=== PATIENT | female | born 1940 | race Caucasian/White ===

== ENCOUNTER → 2019-03-24 15:07 | Outpatient (BNVA) | payer MEDICARE, MEDICAID, SELFPAY | PROVIDERS: Family Provider Family Medicine; PCP Family Medicine; Visit Provider Specialist | DX: G31.83 Neurocognitive disorder with Lewy bodies (principal); F02.80 Dementia in other diseases classified elsewhere, unspecified severity, without behavioral disturbance, psychotic disturbance, mood disturbance, and anxiety; F03.90 Unspecified dementia, unspecified severity, without behavioral disturbance, psychotic disturbance, mood disturbance, and anxiety | CPT/HCPCS: 99214 ==

== ENCOUNTER → 2019-09-29 11:14 | Outpatient (BNVA) | payer MEDICARE, MEDICAID, SELFPAY | PROVIDERS: Family Provider Family Medicine; PCP Family Medicine; Visit Provider Specialist | DX: G20 Parkinson's disease (principal) | CPT/HCPCS: 99213 ==

== ENCOUNTER → 2020-10-05 14:36 | Outpatient (BNVA) | payer MEDICARE, MEDICAID, SELFPAY | PROVIDERS: Family Provider Family Medicine; PCP Family Medicine; Visit Provider Specialist | DX: G20 Parkinson's disease (principal); F02.80 Dementia in other diseases classified elsewhere, unspecified severity, without behavioral disturbance, psychotic disturbance, mood disturbance, and anxiety | CPT/HCPCS: 99214 ==

== ENCOUNTER → 2021-07-05 13:39 | Outpatient (BNVA) | payer MEDICARE, MEDICAID, SELFPAY | PROVIDERS: Family Provider Family Medicine; PCP Family Medicine; Visit Provider Specialist | DX: G31.83 Neurocognitive disorder with Lewy bodies (principal); F02.80 Dementia in other diseases classified elsewhere, unspecified severity, without behavioral disturbance, psychotic disturbance, mood disturbance, and anxiety; R25.1 Tremor, unspecified | CPT/HCPCS: 99213; 99214 ==

== ENCOUNTER → 2023-07-31 14:16 | Outpatient (BNVA) | payer MEDICARE, MEDICAID, SELFPAY | PROVIDERS: Family Provider Family Medicine; PCP Family Medicine; Visit Provider Specialist | DX: G31.83 Neurocognitive disorder with Lewy bodies (principal); F02.C0 Dementia in other diseases classified elsewhere, severe, without behavioral disturbance, psychotic disturbance, mood disturbance, and anxiety | CPT/HCPCS: 99213 ==

== ENCOUNTER 2024-03-07 12:44 | Observation (INO) | payer MEDICARE, MEDICAID, SELFPAY ==
[2024-03-07] VITALS (11 sets, daily range): BP systolic 122–222; BP diastolic 64–137; PULSE 64–99; RESP 16–19; TEMP 36.7–36.9; O2SAT 90–95; BMI 37.0
--- NOTE | 2024-03-07 13:30 | PC.PHAR ---
Verified medications with caregiver, who did give her morning medications including her insulin. Caregiver is concerned about her getting her 1pm dose of Carbidopa/Levodopa 25-100.
[2024-03-07 13:32] LABS: Basophils % 0.4 %; Eosinophils # 0.1 10^3/uL (0.0-0.8); Eosinophils % 1.5 %; Hematocrit 37.6 % (36-47); Lymphocytes % 24.1 %; Mean Corpuscular HGB Conc 33.8 g/dL (30-55); Mean Corpuscular Hemoglobin 30.1 pg (27-33); Mean Corpuscular Volume 89.1 fl (85-98); Mean Platelet Volume 10.2 fL (7.4-10.4); Monocytes # 0.7 10^3/uL (0.2-0.9); Monocytes % 8.9 %; Neutrophils # 5.31 10^3/uL (1.8-7.7); Neutrophils % 64.6 %; Nucleated Red Blood Cells % 0 %; Platelet Count 273 10^3/cmm (157-399); Red Blood Count 4.22 10^6/uL (3.85-5.65); Red Cell Distribution Width 12.5 % (12.1-15.1); White Blood Count 8.21 10^3/uL (3.29-11.43)
--- NOTE | 2024-03-07 13:34 | ED_ITS ---
HPI - Altered Mental Status 2 General: Chief Complaint: Altered Mental Status Stated Complaint: ams Time Seen by Provider: 03/07/24 12:48 Source: patient and EMS History of Present Illness: Patient is a nontoxic 83-year-old female with advanced dementia who is brought into the ER by EMS due to concern for safety at home alone. Patient lives with a family member who assist with her care at home however that family members currently hospitalized and EMS was called for welfare check on the patient who appeared confused at home alone. Patient has no acute complaints to me on exam. Related Data Home Medications Medication Instructions Recorded Confirmed acetaminophen 500 mg tablet 500 mg PO Q6H PRN Pain 03/24/19 03/07/24 (Tylenol Extra Strength) albuterol sulfate 90 mcg/actuation 2 puff inhalation Q4H PRN 03/24/19 03/07/24 aerosol inhaler (Ventolin HFA) Shortness Of Breath amlodipine 10 mg tablet 10 mg PO DAILY 03/24/19 03/07/24 chlorthalidone 25 mg tablet 25 mg PO DAILY 03/24/19 03/07/24 citalopram 20 mg tablet 20 mg PO DAILY 03/24/19 03/07/24 clonidine HCl 0.3 mg tablet 0.15 mg PO DAILY 03/24/19 03/07/24 fluticasone furoate 100 1 inh inhalation DAILY 03/24/19 03/07/24 mcg-vilanterol 25 mcg/dose inhalation powder (Breo Ellipta) insulin degludec 200 unit/mL (3 26 unit SUBCUT DAILY 03/24/19 03/07/24 mL) subcutaneous pen (Tresiba FlexTouch U-200 insulin) losartan 50 mg tablet 50 mg PO DAILY 03/24/19 03/07/24 metoprolol succinate 25 mg 12.5 mg PO DAILY 03/24/19 03/07/24 tablet,extended release 24 hr simethicone 125 mg capsule 125 mg PO DAILY PRN Indigestion 03/24/19 03/07/24 furosemide 20 mg tablet 20 mg PO DAILY PRN Edema 03/07/24 03/07/24 insulin aspart 10 unit SUBCUT TID 03/07/24 03/07/24 (niacinamide)(U-100) 100 unit/mL(3 mL) subcutaneous pen (Fiasp FlexTouch U-100 Insulin) ondansetron HCl 4 mg tablet 4 mg PO DAILY PRN Nausea And 03/07/24 03/07/24 Vomiting pantoprazole 40 mg tablet,delayed 40 mg PO DAILY 03/07/24 03/07/24 release potassium chloride 10 mEq 10 meq PO DAILY PRN Edema 03/07/24 03/07/24 tablet,extended release rosuvastatin 5 mg tablet 5 mg PO DAILY 03/07/24 03/07/24 Previous Rx's Medication Instructions Recorded carbidopa 25 mg-levodopa 100 mg See Rx Instructions .Route 07/31/23 tablet .COMPLEX #450 tabs Allergies Allergy/AdvReac Type Severity Reaction Status Date / Time Opioids - Morphine Analogues Allergy nausea/vomi Verified 07/31/23 14:22 ting PFSH ED 2 PFSH: Family History Other Diabetes Hypertension Denies family history of CAD (coronary artery disease) Cancer Stroke Social History Smoking and tobacco/nicotine status: never used tobacco/nicotine Alcohol intake: never Substance/Drug Use: never Physical Exam 2 Const: COMMON NORMALS: no acute distress, average body habitus, alert and well nourished GENERAL APPEARANCE: cooperative ORIENTATION/CONSCIOUSNESS: Yes awake HENMT: COMMON NORMALS: normocephalic and atraumatic HEAD & SCALP: n ormocephalic and atraumatic Eye: COMMON NORMALS: conjunctivae normal CONJUNCTIVA: Yes conjunctivae normal Neck/C-Spine: GENERAL: Yes normal visual inspection Resp: COMMON NORMALS: normal respiratory effort, No retractions and No use of accessory muscles Cardio: COMMON NORMALS: regular rhythm and Peripheral pulses 2+ throughout RHYTHM: regular rhythm PERIPHERAL PULSES: Peripheral pulses 2+ throughout GI: COMMON NORMALS: Soft to palpation and non-tender PALPATION: Yes Soft to palpation Extremity: COMMON NORMALS: full ROM and no pedal edema Neuro: COMMON NORMALS: no focal motor deficits SENSORIUM/ORIENTATION: Yes alert Skin: COMMON NORMALS: no rashes or lesions noted GENERAL SKIN EXAM: no rashes or lesions noted Course 2 Vital Signs: Vital signs: Vital Signs Temperature 98.1 F 03/07/24 12:44 Pulse Rate 99 03/07/24 12:44 Respiratory Rate 16 03/07/24 12:44 Blood Pressure 198/111 03/07/24 14:04 Pulse Oximetry 91 03/07/24 12:44 Oxygen Delivery Me thod Room Air 03/07/24 12:44 MDM - Altered Mental Status Medical Decision Making Patient is a 83-year-old female with advanced dementia who presents to the ER with significant hypertension and inability to care for self independently at home. Her son who is her primary creel selector is currently being admitted for DKA. Patient has not taken any of her medications today. She was given multiple doses of labetalol as well as clonidine and restarted on her amlodipine and continues to have blood pressure of 190s over 130s. I spoke with Dr. Ghosh with the hospitalist service who will admit for accelerated hypertension and further observation. Lab Data I reviewed the patient's lab results. 03/07/24 13:19 03/07/24 13:19 Laboratory Results WBC 8.21 10^3/uL (3.29-11.43) 03/07/24 13:19 RBC 4.22 10^6/uL (3.85-5.65) 03/07/24 13:19 Hgb 12.70 g/dL (11.27-16.99) 03/07/24 13:19 Hct 37.6 % (36-47) 03/07/24 13:19 MCV 89.1 fl (85-98) 03/07/24 13:19 MCH 30.1 pg (27-33) 03/07/24 13:19 MCHC 33.8 g/dL (30-55) 03/07/24 13:19 RDW 12.5 % (12.1-15.1) 03/07/24 13:19 Plt Count 273 10^3/cmm (157-399) 03/07/24 13:19 MPV 10.2 fL (7.4-10.4) 03/07/24 13:19 Neut % (Auto) 64.6 % 03/07/24 13:19 Lymph % (Auto) 24.1 % 03/07/24 13:19 [place] % (Auto) 8.9 % 03/07/24 13:19 Eos % (Auto) 1.5 % 03/07/24 13:19 Baso % (Auto) 0.4 % 03/07/24 13:19 Neut # (Auto) 5.31 10^3/uL (1.8-7.7) 03/07/24 13:19 Lymph # (Auto) 2.0 10^3/uL (0.8-4.8) 03/07/24 13:19 [place] # (Auto) 0.7 10^3/uL (0.2-0.9) 03/07/24 13:19 Eos # (Auto) 0.1 10^3/uL (0.0-0.8) 03/07/24 13:19 Baso # (Auto) 0.0 10^3/uL (0.0-0.1) 03/07/24 13:19 Nucleated RBC % (auto) 0 % 03/07/24 13:19 Nucleated RBCs # 0.0 /100WBC 03/07/24 13:19 Sodium 138 mmol/L (136-145) 03/07/24 13:19 Potassium 3.5 mmol/L (3.5-5.1) 03/07/24 13:19 Chloride 98 mmol/L (98-107) 03/07/24 13:19 Carbon Dioxide 28 mmol/L (22-29) 03/07/24 13:19 Anion Gap 15.5 (5-19) 03/07/24 13:19 BUN 11 mg/dL (8-23) 03/07/24 13:19 Creatinine 0.6 mg/dL (0.5-0.9) 03/07/24 13:19 GFR Calculation Not Reportable 03/07/24 13:19 Glucose 232 mg/dL (65-115) H 03/07/24 13:19 Calculated Osmolality 293 mOsm/kg (285-295) 03/07/24 13:19 Calcium 9.0 mg/dL (8.5-10.5) 03/07/24 13:19 Total Bilirubin 0.3 mg/dL (0.15-1.2) 03/07/24 13:19 AST 26 U/L (0-32) 03/07/24 13:19 ALT 15 U/L (0-33) 03/07/24 13:19 Alkaline Phosphatase 73 U/L (35-105) 03/07/24 13:19 Total Protein 6.7 g/dL (6.6-8.7) 03/07/24 13:19 Albumin 4.1 g/dL (3.5-5.2) 03/07/24 13:19 Globulin 2.6 g/dL (1.3-4.6) 03/07/24 13:19 No radiology studies performed this visit Discharge Plan Discharge Patient Disposition: Placed in Observation Clinical Impression: Accelerated hypertension, Dementia, Acute hyperglycemia Condition: Stable Prescriptions: No Action clonidine HCl 0.3 mg tablet 0.15 mg PO DAILY metoprolol succinate 25 mg tablet extended release 24 hr 12.5 mg PO DAILY chlorthalidone 25 mg tablet 25 mg PO DAILY losartan 50 mg tablet 50 mg PO DAILY citalopram 20 mg tablet 20 mg PO DAILY albuterol sulfate [Ventolin HFA] 90 mcg/actuation HFA aerosol inhaler 2 puff INHALATION Q4H PRN (Reason: Shortness Of Breath) amlodipine 10 mg tablet 10 mg PO DAILY simethicone 125 mg capsule 125 mg PO DAILY PRN (Reason: Indigestion) acetaminophen [Tylenol Extra Strength] 500 mg tablet 500 mg PO Q6H PRN (Reason: Pain) Tresiba FlexTouch U-200 200 unit/mL (3 mL) insulin pen 26 unit SUBCUT DAILY Breo Ellipta 100-25 mcg/dose blister with device 1 inh INHALATION DAILY carbidopa-levodopa 25-100 mg tablet See Rx Instructions .ROUTE .COMPLEX Qty: 450 3RF Dose Instruction: TAKE 1 TABLET BY MOUTH AT 10 AM, 1 PM, 4 PM, 7 PM, AND 10 PM. Rx Instructions: TAKE 1 TABLET BY MOUTH AT 10 AM, 1 PM, 4 PM, 7 PM, AND 10 PM. ondansetron HCl 4 mg tablet 4 mg PO DAILY PRN (Reason: Nausea And Vomiting) potassium chloride 10 mEq tablet extended release 10 meq PO DAILY PRN (Reason: Edema) pantoprazole 40 mg tablet,delayed release (DR/EC) 40 mg PO DAILY furosemide 20 mg tablet 20 mg PO DAILY PRN (Reason: Edema) rosuvastatin 5 mg tablet 5 mg PO DAILY Fiasp FlexTouch U-100 Insulin 100 unit/mL (3 mL) insulin pen 10 unit SUBCUT TID Referrals: Anamika Ramirez MD [Primary Care Provider] - Patient Instructions: Altered Mental Status (ED) Coding Level of Care Code ED Jewel Sawyer for Benjamin Wallace
[2024-03-07 13:51] LABS: Alanine Aminotransferase 15 U/L (0-33); Albumin Level 4.1 g/dL (3.5-5.2); Alkaline Phosphatase 73 U/L (35-105); Anion Gap 15.5 (5-19); Aspartate Amino Transferase 26 U/L (0-32); Blood Urea Nitrogen 11 mg/dL (8-23); Carbon Dioxide 28 mmol/L (22-29); Chloride 98 mmol/L (98-107); Creatinine Clr Calc Pharmacy 51.1972; Globulin 2.6 g/dL (1.3-4.6); Glucose 232 mg/dL (65-115); Osmolality Calculated 293 mOsm/kg (285-295); Potassium 3.5 mmol/L (3.5-5.1); Sodium 138 mmol/L (136-145); Total Bilirubin 0.3 mg/dL (0.15-1.2); Total Protein 6.7 g/dL (6.6-8.7)
[2024-03-07] MEDS: cloNIDine 0.1 mg Tablet PO (14:04)
[2024-03-07] MEDS: labetalol 5 mg/mL SDV 20mL 10 MG IVP ×2 (15:22→15:36)
[2024-03-07] MEDS: amlodipine 10 mg Tablet PO (15:36)
[2024-03-07 16:18] LABS: Influenza A NEGATIVE (Negative); Influenza B NEGATIVE (Negative); Respiratory Syncytial Virus Ce NEGATIVE (Negative); SARS-CoV-2 PCR NEGATIVE (Negative)
--- NOTE | 2024-03-07 16:25 | XRR_ITS ---
PROCEDURE INFORMATION: Exam: XR Left Ankle Exam date and time: 03/07/2024 4:53 PM Age: 83 years old Clinical indication: Left; Patient HX: Bilateral ankle/foot pain/swelling after fall x 1 week ago TECHNIQUE: Imaging protocol: Radiologic exam of the left ankle. Views: 3 or more views. COMPARISON: CR XR foot LT min 3V* [id number] 03/07/2024 4:53 PM FINDINGS: Bones/joints: Plantar calcaneal spurring. No acute displaced fractures. No ankle joint effusion. Soft tissues: Soft tissue swelling about the ankle joint. XR/XR ankle LT min 3V* [id number] IMPRESSION: As above.
--- NOTE | 2024-03-07 16:25 | XRR_ITS ---
PROCEDURE INFORMATION: Exam: XR Left Foot Exam date and time: 03/07/2024 4:53 PM Age: 83 years old Clinical indication: Left; Patient HX: Bilateral ankle/foot pain/swelling after fall x 1 week ago TECHNIQUE: Imaging protocol: Radiologic exam of the left foot. Views: 3 or more views. COMPARISON: CR (LOW EXM, ) 03/07/2024 4:53 PM FINDINGS: Bones/joints: Plantar calcaneal spurring. No acute displaced fractures. Soft tissues: Mild soft tissue swelling about the dorsum of the foot. XR/XR foot LT min 3V* [id number] IMPRESSION: As above.
--- NOTE | 2024-03-07 16:29 | XRR_ITS ---
PROCEDURE INFORMATION: Exam: XR Right Ankle Exam date and time: 03/07/2024 4:46 PM Age: 83 years old Clinical indication: Ankle and foot; Right; Patient HX: Bilateral ankle/foot pain/swelling after fall x 1 week ago TECHNIQUE: Imaging protocol: Radiologic exam of the right ankle. Views: 3 or more views. COMPARISON: CR XR foot RT min 3V* [id number] 03/07/2024 4:46 PM FINDINGS: Bones/joints: No obvious acute osseous abnormality. Plantar calcaneal spurring. No ankle joint effusion. Soft tissues: Soft tissue swelling about the ankle joint. XR/XR ankle RT min 3V* [id number] IMPRESSION: As above.
--- NOTE | 2024-03-07 16:30 | XRR_ITS ---
PROCEDURE INFORMATION: Exam: XR Right Foot Exam date and time: 03/07/2024 4:46 PM Age: 83 years old Clinical indication: Right; Patient HX: Bilateral ankle/foot pain/swelling after fall x 1 week ago TECHNIQUE: Imaging protocol: Radiologic exam of the right foot. Views: 3 or more views. COMPARISON: CR (LOW EXM, ) 03/07/2024 4:46 PM FINDINGS: Bones/joints: Diffusely decreased bone mineralization. No obvious acute displaced fracture. The joint spaces are maintained. Soft tissues: Soft tissue swelling about the dorsum of the foot. XR/XR foot RT min 3V* [id number] IMPRESSION: As above
--- NOTE | 2024-03-07 16:30 | P.HP_ITS ---
Providers/Chief Complaint 2 Primary Care Provider: Anamika Ramirez MD Chief Complaint: ams History of Present Illness Yudy Coates is a 83 year old female who was brought to the emergency room today after a welfare check as her son had to be brought to the hospital for an acute illness. She has severe Lewy body dementia, gets confused easily, she was found to have elevated blood pressures and brought to the ER. Here her blood pressure was over 200 systolic. She does not appear to have had her meds today. She denies any specific complaints. She is able to tell me her name but not much else. Denies having any pain. States she would like to go home. Review of Systems 2 General: Reports: ROS unobtainable due to medical condition Medications/Allergies Home Medications Medication Instructions Recorded Confirmed Last Taken Type acetaminophen 500 mg tablet 500 mg PO Q6H PRN Pain 03/24/19 03/07/24 Unknown History (Tylenol Extra Strength) albuterol sulfate 90 mcg/actuation 2 puff inhalation Q4H PRN 03/24/19 03/07/24 Unknown History aerosol inhaler (Ventolin HFA) Shortness Of Breath amlodipine 10 mg tablet 10 mg PO DAILY 03/24/19 03/07/24 03/07/24 History chlorthalidone 25 mg tablet 25 mg PO DAILY 03/24/19 03/07/24 03/07/24 History citalopram 20 mg tablet 20 mg PO DAILY 03/24/19 03/07/24 03/07/24 History clonidine HCl 0.3 mg tablet 0.15 mg PO DAILY 03/24/19 03/07/24 03/07/24 History fluticasone furoate 100 1 inh inhalation DAILY 03/24/19 03/07/24 03/07/24 History mcg-vilanterol 25 mcg/dose inhalation powder (Breo Ellipta) insulin degludec 200 unit/mL (3 26 unit SUBCUT DAILY 03/24/19 03/07/24 03/07/24 History mL) subcutaneous pen (Tresiba FlexTouch U-200 insulin) losartan 50 mg tablet 50 mg PO DAILY 03/24/19 03/07/24 03/07/24 History metoprolol succinate 25 mg 12.5 mg PO DAILY 03/24/19 03/07/24 03/07/24 History tablet,extended release 24 hr simethicone 125 mg capsule 125 mg PO DAILY PRN Indigestion 03/24/19 03/07/24 Unknown History carbidopa 25 mg-levodopa 100 mg See Rx Instructions .Route 07/31/23 03/07/24 03/07/24 Rx tablet .COMPLEX #450 tabs furosemide 20 mg tablet 20 mg PO DAILY PRN Edema 03/07/24 03/07/24 Unknown History insulin aspart 10 unit SUBCUT TID 03/07/24 03/07/24 03/07/24 History (niacinamide)(U-100) 100 unit/mL(3 mL) subcutaneous pen (Fiasp FlexTouch U-100 Insulin) ondansetron HCl 4 mg tablet 4 mg PO DAILY PRN Nausea And 03/07/24 03/07/24 Unknown History Vomiting pantoprazole 40 mg tablet,delayed 40 mg PO DAILY 03/07/24 03/07/24 03/07/24 History release potassium chloride 10 mEq 10 meq PO DAILY PRN Edema 03/07/24 03/07/24 Unknown History tablet,extended release rosuvastatin 5 mg tablet 5 mg PO DAILY 03/07/24 03/07/24 03/06/24 History Allergies Allergy/AdvReac Type Severity Reaction Status Date / Time Opioids - Morphine Analogues Allergy nausea/vomi Verified 07/31/23 14:22 ting PFSH Acute 2 PFSH: Family History Other Diabetes Hypertension Denies family history of CAD (coronary artery disease) Cancer Stroke Social History Smoking and tobacco/nicotine status: never used tobacco/nicotine Alcohol intake: never Substance/Drug Use: never Vitals/I&O/Wt Last Vital Signs Temp 98.1 F 03/07/24 12:44 Pulse 77 03/07/24 15:30 Resp 16 03/07/24 12:44 BP 198/137 03/07/24 15:30 Pulse Ox 90 03/07/24 15:30 O2 Del Method Room Air 03/07/24 12:44 Weight last 48 hrs Weight 83.915 kg Physical Exam 2 Narrative: General: No acute distress, AO x1 HEENT: PERRLA, pupils bilaterally equal and reactive, pallors not present Chest: Normal vesicular breath sounds, no added sounds, equal good air entry bilaterally CVS: S1-S2 regular, no murmurs, no tachycardia, no gallops, no rubs Abdomen: Soft, nontender, no organomegaly, bowel sounds present Neuro: No focal deficits, no facial deformity, AO x1, power 5/5 in all limbs Data 03/07/24 13:19 03/07/24 13:19 A&P Assessment and plan (1) Uncontrolled hypertension: (2) Parkinson disease: (3) Lewy body dementia: Qualifiers: Dementia severity: severe Dementia behavioral or psychological symptom: without behavioral, psychotic, or mood disturbance or anxiety Qualified Code(s): G31.83 - Neurocognitive disorder with Lewy bodies; F02.C0 - Dementia in other diseases classified elsewhere, severe, without behavioral disturbance, psychotic disturbance, mood disturbance, and anxiety Plan 83-year-old lady brought to the ER today after a welfare check. Here she is found to have elevated blood pressures in excess of 200/108 systolic. Patient is asymptomatic denies any chest pain or headache. She has severe low body dementia. No focal deficits on exam. Moving all extremities. Able to have a conversation though obviously content is forgetful. Her care was discussed with her son who agrees for her to be admitted to the hospital in observation for blood pressure control. She has thus far received labetalol 10 mg IV push x 2. Amlodipine 10 mg p.o. x 1. Add hydralazine 10 mg IV every 4 hours as needed Resume patient's usual home medications including amlodipine, losartan, metoprolol, clonidine. Most likely blood pressure is elevated today as she has not had any of her regular medications. Monitor on [email or web address]. Attestations 2 Medical Necessity Statement*: Less than 2 midnight stay is anticipated Coding Level of Care Code Acute Code for Chg Fwd Diagnoses Uncontrolled hypertension I10 Parkinson disease G20 Severe Lewy body dementia without behavioral disturbance, psychotic disturbance, mood disturbance, or anxiety G31.83; F02.C0 Dementia severity: severe Dementia behavioral or psychological symptom: without behavioral, psychotic, or mood disturbance or anxiety
--- NOTE | 2024-03-07 18:40 | PC.NURSE ---
Patient is valeri alert to self and date of . Patient denies any pain.
--- NOTE | 2024-03-07 18:40 | PC.NURSE ---
Patient is alert to self and date of only unable to answer medical questions
--- NOTE | 2024-03-07 18:40 | PC.NURSE ---
Patient is only alert to self and date of she is unable to answer any of the medical questions.
[2024-03-07] MEDS: carbidopa-levodopa 25-100mg Tablet 1 EACH PO ×2 (19:13→21:55)
[2024-03-07 20:49] LABS: Glucose Point of Care 163 mg/dL (70-110)
[2024-03-08] VITALS (7 sets, daily range): BP systolic 112–185; BP diastolic 61–76; PULSE 66–97; RESP 17–18; TEMP 36.6–36.8; O2SAT 91–95
[2024-03-08 06:37] LABS: Glucose Point of Care 137 mg/dL (70-110)
[2024-03-08] MEDS: pantoprazole DR 40 mg Tablet PO (10:46)
[2024-03-08] MEDS: atorvastatin 40 mg Tablet 20 MG PO (10:46)
[2024-03-08] MEDS: losartan 50 mg Tablet PO (10:46)
[2024-03-08] MEDS: cloNIDine 0.1 mg Tablet 0.15 MG PO (10:46)
[2024-03-08] MEDS: metoprolol succinate ER (24 HR) 25 mg Tablet 12.5 MG PO (10:47)
[2024-03-08] MEDS: carbidopa-levodopa 25-100mg Tablet 1 EACH PO ×4 (10:47→21:13)
[2024-03-08] MEDS: citalopram 20 mg Tablet PO (10:47)
[2024-03-08] MEDS: acetaminophen 325 mg Tablet 650 MG PO (10:47)
[2024-03-08] MEDS: amlodipine 10 mg Tablet PO (10:47)
[2024-03-08] MEDS: chlorthalidone 25 mg Tablet PO (10:47)
[2024-03-08] MEDS: insulin lispro 100 unit/1 mL 10 UNIT SUBCUT (10:52)
[2024-03-08 10:58] LABS: Glucose Point of Care 223 mg/dL (70-110)
[2024-03-08] MEDS: insulin glargine 100 units/1 mL 26 UNIT SUBCUT (11:02)
[2024-03-08 14:23] LABS: Glucose Point of Care 68 mg/dL (70-110)
--- NOTE | 2024-03-08 15:08 | P.PN_ITS ---
Subjective 2 Subjective: blood pressure 180s today, hypoglycemic this afternoon, missed lunch Medications: Reviewed: Yes Vitals/I&O/Wt Last Vital Signs Temp 98.3 F 03/08/24 11:03 Pulse 97 03/08/24 11:03 Resp 17 03/08/24 11:03 BP 185/70 03/08/24 11:03 Pulse Ox 94 03/08/24 11:03 O2 Del Method Room Air 03/08/24 11:03 03/08/24 03/08/24 03/08/24 06:59 14:59 22:59 Intake Total 356 / 356 Balance 356 / 356 Weight last 48 hrs Weight 72.711 kg Weight 86.183 kg Weight 83.915 kg Physical Exam 2 Narrative: General: No acute distress, AO x1 HEENT: PERRLA, pupils bilaterally equal and reactive, pallors not present Chest: Normal vesicular breath sounds, no added sounds, equal good air entry bilaterally CVS: S1-S2 regular, no murmurs, no tachycardia, no gallops, no rubs Abdomen: Soft, nontender, no organomegaly, bowel sounds present Neuro: No focal deficits, no facial deformity, AO x1, power 5/5 in all limbs Data 03/07/24 13:19 03/07/24 13:19 A&P Assessment and plan (1) Uncontrolled hypertension: (2) Parkinson disease: (3) Lewy body dementia: Qualifiers: Dementia severity: severe Dementia behavioral or psychological symptom: without behavioral, psychotic, or mood disturbance or anxiety Qualified Code(s): G31.83 - Neurocognitive disorder with Lewy bodies; F02.C0 - Dementia in other diseases classified elsewhere, severe, without behavioral disturbance, psychotic disturbance, mood disturbance, and anxiety Plan 83-year-old lady brought to the ER today after a welfare check. Here she is found to have elevated blood pressures in excess of 200/108 systolic. Patient is asymptomatic denies any chest pain or headache. She has severe low body dementia. No focal deficits on exam. Moving all extremities. Able to have a conversation though obviously content is forgetful. Her care was discussed with her son who agrees for her to be admitted to the hospital in observation for blood pressure control. She has thus far received labetalol 10 mg IV push x 2. Amlodipine 10 mg p.o. x 1. Add hydralazine 10 mg IV every 4 hours as needed Resume patient's usual home medications including amlodipine, losartan, metoprolol, clonidine. Most likely blood pressure is elevated today as she has not had any of her regular medications. Monitor on [facility]. 03/08/24: hypoglycemic today, given juice and meal, missed lunch as she was asleep,holding insulin, will resume low dose sliding scale when able. Bp still systolic 180s . Increase losartan to 75mg po daily and monitor BP. Ongoing disposition planning Attestations 2 Medical Necessity Statement*: ongoing disposition planning Coding Level of Care Code Acute Code for Chg Fwd Diagnoses Uncontrolled hypertension I10 Parkinson disease G20 Severe Lewy body dementia without behavioral disturbance, psychotic disturbance, mood disturbance, or anxiety G31.83; F02.C0 Dementia severity: severe Dementia behavioral or psychological symptom: without behavioral, psychotic, or mood disturbance or anxiety
[2024-03-08 15:33] LABS: Glucose Point of Care 134 mg/dL (70-110)
[2024-03-08 16:47] LABS: Glucose Point of Care 149 mg/dL (70-110)
[2024-03-08 20:25] LABS: Glucose Point of Care 119 mg/dL (70-110)
[2024-03-09] VITALS (10 sets, daily range): BP systolic 119–179; BP diastolic 56–79; PULSE 69–94; RESP 16–19; TEMP 36.5–36.9; O2SAT 93–96
[2024-03-09 03:25] LABS: Glucose Point of Care 76 mg/dL (70-110)
[2024-03-09 06:48] LABS: Glucose Point of Care 120 mg/dL (70-110)
[2024-03-09 10:48] LABS: Glucose Point of Care 254 mg/dL (70-110)
[2024-03-09] MEDS: citalopram 20 mg Tablet PO (10:49)
[2024-03-09] MEDS: chlorthalidone 25 mg Tablet PO (10:49)
[2024-03-09] MEDS: carbidopa-levodopa 25-100mg Tablet 1 EACH PO ×5 (10:49→22:21)
[2024-03-09] MEDS: pantoprazole DR 40 mg Tablet PO (10:49)
[2024-03-09] MEDS: metoprolol succinate ER (24 HR) 25 mg Tablet 12.5 MG PO (10:50)
[2024-03-09] MEDS: amlodipine 10 mg Tablet PO (10:50)
[2024-03-09] MEDS: losartan 50 mg Tablet 75 MG PO (10:51)
[2024-03-09] MEDS: cloNIDine 0.1 mg Tablet 0.15 MG PO (10:52)
[2024-03-09] MEDS: atorvastatin 40 mg Tablet 20 MG PO (10:54)
--- NOTE | 2024-03-09 14:06 | P.PN_ITS ---
Subjective 2 Subjective: Seen this morning. No acute events overnight. Resting comfortably in recliner. Pleasantly confused. Vitals/I&O/Wt Last Vital Signs Temp 98.2 F 03/09/24 11:10 Pulse 90 03/09/24 11:10 Resp 16 03/09/24 11:10 BP 155/79 03/09/24 11:10 Pulse Ox 96 03/09/24 11:10 O2 Del Method Room Air 03/09/24 11:10 03/08/24 03/09/24 03/09/24 22:59 06:59 14:59 Intake Total 420 / 776 360 / 360 Balance 420 / 776 360 / 360 Weight last 48 hrs Weight 72.711 kg Weight 72.711 kg Weight 86.183 kg Physical Exam 2 Narrative: General: No acute distress, AO x1 HEENT: PERRLA, pupils bilaterally equal and reactive, pallors not present Chest: Normal vesicular breath sounds, no added sounds, equal good air entry bilaterally CVS: S1-S2 regular, no murmurs, no tachycardia, no gallops, no rubs Abdomen: Soft, nontender, no organomegaly, bowel sounds present Neuro: No focal deficits, no facial deformity, AO x1, Data 03/07/24 13:19 03/07/24 13:19 A&P Assessment and plan (1) Uncontrolled hypertension: (2) Parkinson disease: (3) Lewy body dementia: Qualifiers: Dementia severity: severe Dementia behavioral or psychological symptom: without behavioral, psychotic, or mood disturbance or anxiety Qualified Code(s): G31.83 - Neurocognitive disorder with Lewy bodies; F02.C0 - Dementia in other diseases classified elsewhere, severe, without behavioral disturbance, psychotic disturbance, mood disturbance, and anxiety Plan 83-year-old lady brought to the ER today after a welfare check. Here she is found to have elevated blood pressures in excess of 200/108 systolic. Patient is asymptomatic denies any chest pain or headache. She has severe low body dementia. No focal deficits on exam. Moving all extremities. Able to have a conversation though obviously content is forgetful. Her care was discussed with her son who agrees for her to be admitted to the hospital in observation for blood pressure control. She has thus far received labetalol 10 mg IV push x 2. Amlodipine 10 mg p.o. x 1. Add hydralazine 10 mg IV every 4 hours as needed Resume patient's usual home medications including amlodipine, losartan, metoprolol, clonidine. Most likely blood pressure is elevated today as she has not had any of her regular medications. Monitor on [facility]. 03/08/24: hypoglycemic today, given juice and meal, missed lunch as she was asleep,holding insulin, will resume low dose sliding scale when able. Bp still systolic 180s . Increase losartan to 75mg po daily and monitor BP. Ongoing disposition planning 03/09/2024 Seen today. Blood pressure improved. ? Continue ongoing disposition planning. Attestations 2 Medical Necessity Statement*: ongoing disposition planning Coding Level of Care Code Acute Code for Chg Fwd Diagnoses Uncontrolled hypertension I10 Parkinson disease G20 Severe Lewy body dementia without behavioral disturbance, psychotic disturbance, mood disturbance, or anxiety G31.83; F02.C0 Dementia severity: severe Dementia behavioral or psychological symptom: without behavioral, psychotic, or mood disturbance or anxiety
[2024-03-09 16:50] LABS: Glucose Point of Care 286 mg/dL (70-110)
[2024-03-09 20:13] LABS: Glucose Point of Care 366 mg/dL (70-110)
[2024-03-10 04:00] VITALS: BP 132/56; PULSE 68; RESP 17; TEMP 36.9; O2SAT 94
[2024-03-10 04:29] LABS: Glucose Point of Care 257 mg/dL (70-110)
[2024-03-10 06:26] LABS: Glucose Point of Care 238 mg/dL (70-110)
[2024-03-10 07:24] VITALS: BP 163/84; PULSE 82; RESP 17; TEMP 36.7; O2SAT 95
[2024-03-10] MEDS: amlodipine 10 mg Tablet PO (09:13)
[2024-03-10] MEDS: atorvastatin 40 mg Tablet 20 MG PO (09:13)
[2024-03-10] MEDS: carbidopa-levodopa 25-100mg Tablet 1 EACH PO ×4 (09:13→21:33)
[2024-03-10] MEDS: metoprolol succinate ER (24 HR) 25 mg Tablet 12.5 MG PO (09:13)
[2024-03-10] MEDS: citalopram 20 mg Tablet PO (09:13)
[2024-03-10] MEDS: cloNIDine 0.1 mg Tablet 0.15 MG PO (09:13)
[2024-03-10] MEDS: chlorthalidone 25 mg Tablet PO (09:13)
[2024-03-10] MEDS: pantoprazole DR 40 mg Tablet PO (09:13)
[2024-03-10] MEDS: losartan 50 mg Tablet 75 MG PO (09:14)
[2024-03-10 10:00] VITALS: PULSE 92; RESP 18; O2SAT 95
[2024-03-10 11:40] LABS: Glucose Point of Care 365 mg/dL (70-110)
[2024-03-10 11:45] VITALS: BP 124/80; PULSE 72; RESP 18; TEMP 36.6; O2SAT 94
--- NOTE | 2024-03-10 13:06 | P.PN_ITS ---
Subjective 2 Subjective: seen today no acute events overnight Vitals/I&O/Wt Last Vital Signs Temp 97.9 F 03/10/24 11:45 Pulse 72 03/10/24 11:45 Resp 18 03/10/24 11:45 BP 124/80 03/10/24 11:45 Pulse Ox 94 03/10/24 11:45 O2 Del Method Room Air 03/10/24 11:45 03/09/24 03/10/24 03/10/24 22:59 06:59 14:59 Intake Total 360 / 720 120 / 840 480 / 480 Output Total 200 / 200 Balance 360 / 720 -80 / 640 480 / 480 Weight last 48 hrs Weight 72.756 kg Weight 72.711 kg Physical Exam 2 Narrative: General: No acute distress, AO x1 HEENT: PERRLA, pupils bilaterally equal and reactive, pallors not present Chest: Normal vesicular breath sounds, no added sounds, equal good air entry bilaterally CVS: S1-S2 regular, no murmurs, no tachycardia, no gallops, no rubs Abdomen: Soft, nontender, no organomegaly, bowel sounds present Neuro: No focal deficits, no facial deformity, AO x1, Data 03/07/24 13:19 03/07/24 13:19 A&P Assessment and plan (1) Uncontrolled hypertension: (2) Parkinson disease: (3) Lewy body dementia: Qualifiers: Dementia severity: severe Dementia behavioral or psychological symptom: without behavioral, psychotic, or mood disturbance or anxiety Qualified Code(s): G31.83 - Neurocognitive disorder with Lewy bodies; F02.C0 - Dementia in other diseases classified elsewhere, severe, without behavioral disturbance, psychotic disturbance, mood disturbance, and anxiety Plan 83-year-old lady brought to the ER today after a welfare check. Here she is found to have elevated blood pressures in excess of 200/108 systolic. Patient is asymptomatic denies any chest pain or headache. She has severe low body dementia. No focal deficits on exam. Moving all extremities. Able to have a conversation though obviously content is forgetful. Her care was discussed with her son who agrees for her to be admitted to the hospital in observation for blood pressure control. She has thus far received labetalol 10 mg IV push x 2. Amlodipine 10 mg p.o. x 1. Add hydralazine 10 mg IV every 4 hours as needed Resume patient's usual home medications including amlodipine, losartan, metoprolol, clonidine. Most likely blood pressure is elevated today as she has not had any of her regular medications. Monitor on MedSurg. 03/08/24: hypoglycemic today, given juice and meal, missed lunch as she was asleep,holding insulin, will resume low dose sliding scale when able. Bp still systolic 180s . Increase losartan to 75mg po daily and monitor BP. Ongoing disposition planning 03/09/2024 Seen today. Blood pressure improved. ? Continue ongoing disposition planning. 03/10/2024 Seen today. Blood pressure improved. ? Continue ongoing disposition planning. Attestations 2 Medical Necessity Statement*: ongoing disposition planning Diagnoses Uncontrolled hypertension I10 Parkinson disease G20 Severe Lewy body dementia without behavioral disturbance, psychotic disturbance, mood disturbance, or anxiety G31.83; F02.C0 Dementia severity: severe Dementia behavioral or psychological symptom: without behavioral, psychotic, or mood disturbance or anxiety
[2024-03-10 15:30] VITALS: BP 153/66; PULSE 67; RESP 14; TEMP 36.8; O2SAT 93
[2024-03-10 16:31] LABS: Glucose Point of Care 360 mg/dL (70-110)
[2024-03-10 19:48] VITALS: BP 141/74; PULSE 73; RESP 17; TEMP 36.9; O2SAT 95
[2024-03-11] VITALS (9 sets, daily range): BP systolic 115–168; BP diastolic 51–83; PULSE 64–100; RESP 15–17; TEMP 36.4–37.1; O2SAT 92–96
[2024-03-11] MEDS: carbidopa-levodopa 25-100mg Tablet 1 EACH PO ×6 (00:12→22:39)
[2024-03-11] MEDS: insulin lispro 100 unit/1 mL SUBCUT ×3 (07:48→22:39)
[2024-03-11] MEDS: cloNIDine 0.1 mg Tablet 0.15 MG PO (08:58)
[2024-03-11] MEDS: citalopram 20 mg Tablet PO (08:58)
[2024-03-11] MEDS: chlorthalidone 25 mg Tablet PO (08:59)
[2024-03-11] MEDS: losartan 50 mg Tablet 75 MG PO (08:59)
[2024-03-11] MEDS: amlodipine 10 mg Tablet PO (08:59)
[2024-03-11] MEDS: atorvastatin 40 mg Tablet 20 MG PO (08:59)
[2024-03-11] MEDS: pantoprazole DR 40 mg Tablet PO (08:59)
[2024-03-11] MEDS: metoprolol succinate ER (24 HR) 25 mg Tablet 12.5 MG PO (08:59)
[2024-03-11 11:43] LABS: Glucose Point of Care 120 mg/dL (70-110)
--- NOTE | 2024-03-11 13:28 | P.PN_ITS ---
Subjective 2 Subjective: Patient states she would like to go home with Paulo. No acute events overnight. Vitals/I&O/Wt Last Vital Signs Temp 97.6 F 03/11/24 11:30 Pulse 100 03/11/24 11:30 Resp 17 03/11/24 11:30 BP 131/51 03/11/24 11:30 Pulse Ox 92 03/11/24 11:30 O2 Del Method Room Air 03/11/24 11:30 03/10/24 03/11/24 03/11/24 22:59 06:59 14:59 Intake Total 480 / 960 45 / 1005 360 / 360 Output Total 300 / 300 Balance 180 / 660 45 / 705 360 / 360 Weight last 48 hrs Weight 72.711 kg Weight 72.756 kg Physical Exam 2 Narrative: General: No acute distress, AO x1 HEENT: PERRLA, pupils bilaterally equal and reactive, pallors not present Chest: Normal vesicular breath sounds, no added sounds, equal good air entry bilaterally CVS: S1-S2 regular, no murmurs, no tachycardia, no gallops, no rubs Abdomen: Soft, nontender, no organomegaly, bowel sounds present Neuro: No focal deficits, no facial deformity, AO x1, Data 03/07/24 13:19 03/07/24 13:19 A&P Assessment and plan (1) Uncontrolled hypertension: (2) Parkinson disease: (3) Lewy body dementia: Qualifiers: Dementia severity: severe Dementia behavioral or psychological symptom: without behavioral, psychotic, or mood disturbance or anxiety Qualified Code(s): G31.83 - Neurocognitive disorder with Lewy bodies; F02.C0 - Dementia in other diseases classified elsewhere, severe, without behavioral disturbance, psychotic disturbance, mood disturbance, and anxiety Plan 83-year-old lady brought to the ER today after a welfare check. Here she is found to have elevated blood pressures in excess of 200/108 systolic. Patient is asymptomatic denies any chest pain or headache. She has severe low body dementia. No focal deficits on exam. Moving all extremities. Able to have a conversation though obviously content is forgetful. Her care was discussed with her son who agrees for her to be admitted to the hospital in observation for blood pressure control. She has thus far received labetalol 10 mg IV push x 2. Amlodipine 10 mg p.o. x 1. Add hydralazine 10 mg IV every 4 hours as needed Resume patient's usual home medications including amlodipine, losartan, metoprolol, clonidine. Most likely blood pressure is elevated today as she has not had any of her regular medications. Monitor on MedSurg. 03/08/24: hypoglycemic today, given juice and meal, missed lunch as she was asleep,holding insulin, will resume low dose sliding scale when able. Bp still systolic 180s . Increase losartan to 75mg po daily and monitor BP. Ongoing disposition planning 03/09/2024 Seen today. Blood pressure improved. ? Continue ongoing disposition planning. 03/10/2024 Seen today. Blood pressure improved. ? Continue ongoing disposition planning. 03/11/2024 -Ongoing disposition planning. Attestations 2 Medical Necessity Statement*: ongoing disposition planning Coding Level of Care Code Acute Code for g Fwd Diagnoses Uncontrolled hypertension I10 Parkinson disease G20 Severe Lewy body dementia without behavioral disturbance, psychotic disturbance, mood disturbance, or anxiety G31.83; F02.C0 Dementia severity: severe Dementia behavioral or psychological symptom: without behavioral, psychotic, or mood disturbance or anxiety
[2024-03-11 16:30] LABS: Glucose Point of Care 233 mg/dL (70-110)
[2024-03-11 20:31] LABS: Glucose Point of Care 204 mg/dL (70-110)
[2024-03-12] VITALS (9 sets, daily range): BP systolic 119–165; BP diastolic 65–68; PULSE 58–80; RESP 16–18; TEMP 36.4–37; O2SAT 92–95
[2024-03-12 06:25] LABS: Glucose Point of Care 171 mg/dL (70-110)
[2024-03-12] MEDS: insulin lispro 100 unit/1 mL SUBCUT ×2 (09:22→12:10)
[2024-03-12] MEDS: losartan 50 mg Tablet 75 MG PO (09:24)
[2024-03-12] MEDS: citalopram 20 mg Tablet PO (09:24)
[2024-03-12] MEDS: chlorthalidone 25 mg Tablet PO (09:24)
[2024-03-12] MEDS: metoprolol succinate ER (24 HR) 25 mg Tablet 12.5 MG PO (09:24)
[2024-03-12] MEDS: pantoprazole DR 40 mg Tablet PO (09:25)
[2024-03-12] MEDS: atorvastatin 40 mg Tablet 20 MG PO (09:25)
[2024-03-12] MEDS: amlodipine 10 mg Tablet PO (09:26)
[2024-03-12] MEDS: cloNIDine 0.1 mg Tablet 0.15 MG PO (09:26)
[2024-03-12 10:58] LABS: Glucose Point of Care 241 mg/dL (70-110)
[2024-03-12] MEDS: carbidopa-levodopa 25-100mg Tablet 1 EACH PO (11:10)
--- NOTE | 2024-03-12 12:39 | P.DS_ITS ---
Discharge Providers Date of Admission: 03/07/24 15:36 Date of Discharge: March 12, 2024 Attending Provider at Admission: Marybel Ghosh MD Attending Provider at Discharge: Leann Hess MD Primary Care Provider: Anamika Ramirez MD Diagnoses at Discharge Discharge Diagnosis (1) Uncontrolled hypertension: Status: Resolved (2) Parkinson disease: Status: Acute (3) Lewy body dementia: Status: Acute Qualifiers: Dementia behavioral or psychological symptom: without behavioral, psychotic, or mood disturbance or anxiety Dementia severity: severe Qualified Code(s): G31.83 - Neurocognitive disorder with Lewy bodies; F02.C0 - Dementia in other diseases classified elsewhere, severe, without behavioral disturbance, psychotic disturbance, mood disturbance, and anxiety Reason for Visit Reason for Visit: ams Hospital Course Hospital Course Patient was admitted after a well check was done on her requested by her son who was admitted to the hospital. He was her primary caregiver and she was unsafe to be at home alone especially with history of Lewy body dementia. On admission she did have accelerated hypertension which was treated. She remained in the hospital while her son was admitted and was eventually discharged to nursing facility as a part of safe discharge planning. Patient's daughter and son on board with the plan. No other medical issues treated during the stay. Physical Exam Narrative: General: No acute distress, AO x1 HEENT: PERRLA, pupils bilaterally equal and reactive, pallors not present Chest: Normal vesicular breath sounds, no added sounds, equal good air entry bilaterally CVS: S1-S2 regular, no murmurs, no tachycardia, no gallops, no rubs Abdomen: Soft, nontender, no organomegaly, bowel sounds present Neuro: No focal deficits, no facial deformity, AO x1, Discharge Data Studies Completed and Pending Completed Studies During Hospitalization Category Date Time Status XR ankle LT min 3V* [id number] Stat Exams 03/07/24 16:25 Completed XR ankle RT min 3V* [id number] Stat Exams 03/07/24 16:29 Completed XR foot LT min 3V* [id number] Stat Exams 03/07/24 16:25 Completed XR foot RT min 3V* [id number] Stat Exams 03/07/24 16:30 Completed Radiology Impressions Ankle X-Ray 03/07/24 16:29 IMPRESSION: As above. Foot X-Ray 03/07/24 16:30 IMPRESSION: As above Laboratory Results WBC 8.21 10^3/uL (3.29-11.43) 03/07/24 13:19 RBC 4.22 10^6/uL (3.85-5.65) 03/07/24 13:19 Hgb 12.70 g/dL (11.27-16.99) 03/07/24 13:19 Hct 37.6 % (36-47) 03/07/24 13:19 MCV 89.1 fl (85-98) 03/07/24 13:19 MCH 30.1 pg (27-33) 03/07/24 13:19 MCHC 33.8 g/dL (30-55) 03/07/24 13:19 RDW 12.5 % (12.1-15.1) 03/07/24 13:19 Plt Count 273 10^3/cmm (157-399) 03/07/24 13:19 MPV 10.2 fL (7.4-10.4) 03/07/24 13:19 Neut % (Auto) 64.6 % 03/07/24 13:19 Lymph % (Auto) 24.1 % 03/07/24 13:19 [place] % (Auto) 8.9 % 03/07/24 13:19 Eos % (Auto) 1.5 % 03/07/24 13:19 Baso % (Auto) 0.4 % 03/07/24 13:19 Neut # (Auto) 5.31 10^3/uL (1.8-7.7) 03/07/24 13:19 Lymph # (Auto) 2.0 10^3/uL (0.8-4.8) 03/07/24 13:19 [place] # (Auto) 0.7 10^3/uL (0.2-0.9) 03/07/24 13:19 Eos # (Auto) 0.1 10^3/uL (0.0-0.8) 03/07/24 13:19 Baso # (Auto) 0.0 10^3/uL (0.0-0.1) 03/07/24 13:19 Nucleated RBC % (auto) 0 % 03/07/24 13:19 Nucleated RBCs # 0.0 /100WBC 03/07/24 13:19 Sodium 138 mmol/L (136-145) 03/07/24 13:19 Potassium 3.5 mmol/L (3.5-5.1) 03/07/24 13:19 Chloride 98 mmol/L (98-107) 03/07/24 13:19 Carbon Dioxide 28 mmol/L (22-29) 03/07/24 13:19 Anion Gap 15.5 (5-19) 03/07/24 13:19 BUN 11 mg/dL (8-23) 03/07/24 13:19 Creatinine 0.6 mg/dL (0.5-0.9) 03/07/24 13:19 GFR Calculation Not Reportable 03/07/24 13:19 Glucose 232 mg/dL (65-115) H 03/07/24 13:19 POC Glucose 241 mg/dL (70-110) H 03/12/24 10:31 Calculated Osmolality 293 mOsm/kg (285-295) 03/07/24 13:19 Calcium 9.0 mg/dL (8.5-10.5) 03/07/24 13:19 Total Bilirubin 0.3 mg/dL (0.15-1.2) 03/07/24 13:19 AST 26 U/L (0-32) 03/07/24 13:19 ALT 15 U/L (0-33) 03/07/24 13:19 Alkaline Phosphatase 73 U/L (35-105) 03/07/24 13:19 Total Protein 6.7 g/dL (6.6-8.7) 03/07/24 13:19 Albumin 4.1 g/dL (3.5-5.2) 03/07/24 13:19 Globulin 2.6 g/dL (1.3-4.6) 03/07/24 13:19 Coronavirus (PCR) Negative (Negative) 03/07/24 13:40 Influenza A (PCR) Negative (Negative) 03/07/24 13:40 Influenza Type B (PCR) Negative (Negative) 03/07/24 13:40 RSV (PCR) Negative (Negative) 03/07/24 13:40 Vitals Last Vital Signs Temp 98.1 F 03/12/24 11:32 Pulse 74 03/12/24 11:32 Resp 17 03/12/24 11:32 BP 119/68 03/12/24 11:32 Pulse Ox 93 03/12/24 11:32 O2 Del Method Room Air 03/12/24 11:32 Discharge Plan Discharge Patient Disposition: Xfer SNF Condition: Stable Prescriptions: New insulin lispro [Humalog U-100 Insulin] 100 unit/mL Solution See Rx Instructions .ROUTE .COMPLEX Qty: 10 0RF Rx Instructions: 141-180 mg/dl 4 units/SQ 181-220 mg/dl 6 units/SQ 221-260 mg/dl 8 units/SQ 261-300 mg/dl 10 units/SQ 301-350 mg/dl 12 units/SQ 351-400 mg/dl 14 units/SQ greater than 400 mg/dl 16 units/SQ Continued clonidine HCl 0.3 mg tablet 0.15 mg PO DAILY metoprolol succinate 25 mg tablet extended release 24 hr 12.5 mg PO DAILY chlorthalidone 25 mg tablet 25 mg PO DAILY losartan 50 mg tablet 50 mg PO DAILY citalopram 20 mg tablet 20 mg PO DAILY albuterol sulfate [Ventolin HFA] 90 mcg/actuation HFA aerosol inhaler 2 puff INHALATION Q4H PRN (Reason: Shortness Of Breath) amlodipine 10 mg tablet 10 mg PO DAILY simethicone 125 mg capsule 125 mg PO DAILY PRN (Reason: Indigestion) acetaminophen [Tylenol Extra Strength] 500 mg tablet 500 mg PO Q6H PRN (Reason: Pain) Breo Ellipta 100-25 mcg/dose blister with device 1 inh INHALATION DAILY carbidopa-levodopa 25-100 mg tablet See Rx Instructions .ROUTE .COMPLEX Qty: 450 3RF Dose Instruction: TAKE 1 TABLET BY MOUTH AT 10 AM, 1 PM, 4 PM, 7 PM, AND 10 PM. Rx Instructions: TAKE 1 TABLET BY MOUTH AT 10 AM, 1 PM, 4 PM, 7 PM, AND 10 PM. ondansetron HCl 4 mg tablet 4 mg PO DAILY PRN (Reason: Nausea And Vomiting) potassium chloride 10 mEq tablet extended release 10 meq PO DAILY PRN (Reason: Edema) pantoprazole 40 mg tablet,delayed release (DR/EC) 40 mg PO DAILY furosemide 20 mg tablet 20 mg PO DAILY PRN (Reason: Edema) rosuvastatin 5 mg tablet 5 mg PO DAILY Changed insulin degludec [Tresiba FlexTouch U-200] 200 unit/mL (3 mL) insulin pen 10 unit SUBCUT DAILY Qty: 10 0RF Discontinued Fiasp FlexTouch U-100 Insulin 100 unit/mL (3 mL) insulin pen 10 unit SUBCUT TID Discharge Orders: Discharge Order (Routine); Ordered 03/12/24 Ordered By: Leann Hess Referrals: [facility] [place] [Outside] Anamika Ramirez MD [Primary Care Provider] - 4-7 days Discharge Diet: Cardiac and Diabetic Discharge Activity: Resume usual activity and Use walker/crutches as instructed Patient Instructions: Altered Mental Status (ED), Opioid Safety Discharge Attestations Time Spent in Discharge Care*: less than 30 min Quality Metrics Clinical Quality Measures [ No reported AMI, CVA or VTE this stay] Coding Level of Care Code Acute Code for Chg Fwd Diagnoses Uncontrolled hypertension I10 Parkinson disease G20 Severe Lewy body dementia without behavioral disturbance, psychotic disturbance, mood disturbance, or anxiety G31.83; F02.C0 Dementia behavioral or psychological symptom: without behavioral, p sychotic, or mood disturbance or anxiety Dementia severity: severe
[2024-03-12 13:41] LABS: SARS Covid-2 Antigen negative (Negative)
--- NOTE | 2024-03-12 15:34 | PC.NURSE ---
Called report to Mariia Gordon RN at [facility]
== END 2024-03-12 15:30 | disposition skilled nursing facility (03) ==
LOC: ER 16:49 → MEDSURG 17:41
PROVIDERS: Admitting Provider Student in an Organized Health Care Education/Training Program; Emergency Provider Student in an Organized Health Care Education/Training Program; Family Provider Family Medicine; PCP Family Medicine; Visit Provider Internal Medicine
DX: G31.83 Neurocognitive disorder with Lewy bodies (principal); F02.C0 Dementia in other diseases classified elsewhere, severe, without behavioral disturbance, psychotic disturbance, mood disturbance, and anxiety; G20.A1 Parkinson's disease without dyskinesia, without mention of fluctuations; Z79.899 Other long term (current) drug therapy; Z79.4 Long term (current) use of insulin; Z88.5 Allergy status to narcotic agent; I10 Essential (primary) hypertension; E16.2 Hypoglycemia, unspecified
CPT/HCPCS: 36416; 73610; 73630; 80053; 82962; 85025; 87426; 87637; 96372; 96374; 99285; G0378; J1815; J3490

== ENCOUNTER 2025-02-05 09:46 | Emergency (ER) | payer MEDICARE, MEDICAID, SELFPAY ==
[2025-02-05 09:48] VITALS: BP 142/78; PULSE 80; RESP 16; TEMP 37.3; O2SAT 95
--- NOTE | 2025-02-05 09:50 | CT_ITS ---
WS: [id number] CT HEAD NONCONTRAST HISTORY: weakness TECHNIQUE: Contiguous axial imaging performed through the brain. Bone and soft tissue windows. Sagittal and coronal reformats reviewed. All CT scans at [facility] use at least one of these dose optimization techniques: automated exposure control; mA and/or kV adjustment per patient size (includes targeted exams where dose is matched to clinical indication); or iterative reconstruction. DLP: 1076.98 mGy.cm COMPARISON: None available. No acute intracranial hemorrhage, midline shift or mass effect. Moderate symmetric atrophy in the cerebrum and cerebellum. Decreased attenuation in the periventricular white matter is confluent and patchy. Ventricles: Normal size with no hydrocephalus. No inferior displacement of the cerebellar tonsils. Paranasal sinuses: As visualized are clear. Mastoid air cells: Well pneumatized. Calvarium and scalp: Skull is intact with no soft tissue edema or swelling. Cerumen in the external auditory canals. CT/CT head wo con* [id number] IMPRESSION: 1. No acute intracranial hemorrhage or edema. 2. Moderate cerebral and cerebellar atrophy with small vessel changes.
--- NOTE | 2025-02-05 09:50 | XRR_ITS ---
PROCEDURE INFORMATION: Exam: XR Chest Exam date and time: 02/05/2025 10:00 AM Age: 84 years old Clinical indication: Other: Weakness TECHNIQUE: Imaging protocol: Radiologic exam of the chest. Views: 1 view. COMPARISON: No relevant prior studies available. FINDINGS: Lungs: No active infiltrate or focal parenchymal abnormality. Pulmonary vascularity is normal. Pleural spaces: No pleural effusion. No pneumothorax. Heart/Mediastinum: Normal cardiomediastinal sillhouette. Bones/joints: Unremarkable. XR/XR chest 1V portable [id number] IMPRESSION: No acute cardiopulmonary abnormality.
--- OUTSIDE RECORDS SUMMARY | 2025-02-05 09:55 | XMS_ITS | Data Portability ---
Author Organization [facility] [place] [facility], [facility] Address [address] [place] [phone] Assessment No assessment recorded. Plan of Treatment Reminders Order Date Submit Date Provider Last Modified By Organization Details Last Modified Time Details Appointments None record ed. Lab None record ed. Referral None record ed. Procedures None record ed. Surgeries None record ed. Imaging None record ed. Medication Orders None record ed. Patient TargetsNo targets recorded. Patient Instructions Encounter Date Encounter Id Patient Instructions Last Modified By Organization Details Last Modified Time 09/28/2024 [id number] Sugars reviewed and mostly controlled, however there is room for improvement with postprandial. Will increase her Novolog to 10 units with meals. Otherwise doing well, blood pressure controlled. Weight stable. [email or web address] Not available 09/28/2024 14:23:20 10/19/2024 [id number] Sugars controlled, mood good. No issues per staff. [email or web address] Not available 10/19/2024 12:24:03 12/07/2024 [id number] Sugars controlled. Vitals stable. [email or web address] Not available 12/07/2024 15:01:28 12/31/2024 [id number] Sugars reviewed, and controlled. Mood good. Vitals stable. [email or web address] Not available 12/31/2024 13:08:10 Reason for Referral None Reported. Results Created Date Observation Date Name Description Value Unit Range Abnormal Flag Note LastModifiedBy Organization Detail LastModifiedTime Result Notes None recorded. Problems Name Problem SNOMED Code Status Onset Date Resolution Date Notes Provider Name and Address Organization Details Recorded Time Benign essential hypertens ion 5160811 Active 2005 Hypertens ion; 6 3:30PM by Demetra Jiménez LPN, Office Visit; Promoted; acuity set as *; Not Available [facility] 3 03:08:38 Chronic arthritis 65465175 Active 2005 Chronic Arthritis ; 6 3:30PM by Demetra Jiménez LPN, Office Visit; Promoted; acuity set as *; Not Available [facility] 3 03:08:38 History of tubal ligation 535427074 Active 2005 Tubal Ligation; 6 3:30PM by Demetra Jiménez LPN, Office Visit; Promoted; acuity set as *; Not Available [facility] 3 03:08:38 Anxiety disorder 373755177 Active 2005 Anxiety Disorder; 6 3:30PM by Demetra Jiménez LPN, Office Visit; Promoted; acuity set as *; Not Available [facility] 3 03:08:38 Appendect georgiana Active 2005 Appendect georgiana; 6 3:30PM by Demetra Jiménez LPN, Office Visit; Promoted; acuity set as *; Not Available [facility] 3 03:08:38 Hyperchol esterolem ia 36070555 Active 2005 Hyperchol esterolem ia; 6 3:30PM by Demetra Jiménez LPN, Office Visit; Promoted; acuity set as *; Not Available [facility] 3 03:08:39 Asthma 229203331 Active 2005 Asthma; 6 3:30PM by Demetra Jiménez LPN, Office Visit; Promoted; acuity set as *; Not Available [facility] 3 03:08:39 Type 2 diabetes mellitus without complicat ion 749632510 Active 2005 Non-Insul in Dependent Diabetes Mellitus; 6 3:30PM by Demetra Jiménez LPN, Office Visit; Promoted; acuity set as *; Not Available [facility] 3 03:08:39 Acute ulcer of skin 62697802728 9108 Active 2005 Perferate d Ulcer; 6 3:30PM by Demetra Jiménez LPN, Office Visit; Promoted; acuity set as *; Not Available [facility] 3 03:08:39 Cholecyst ectomy Active 2005 Cholecyst ectomy; 6 3:30PM by Demetra Jiménez LPN, Office Visit; Promoted; acuity set as *; Not Available [facility] 3 03:08:39 Arthrosco py Active 2005 Arthrosco py and Open Rotator Cuff Repair Rt Shoulder; 11-16; 6 2:24PM by Demetra Jiménez LPN, Historica l Summary; Promoted; acuity set as *; Not Available [facility] 3 03:08:39 Lewy body dementia with behaviora l jerryan ce 95177701425 9107 [facility] 14:15:48 Essential hypertens ion 34497092 Active 20[facility] 5 14:16:06 Hyperglyc emia due to type 2 diabetes mellitus 75074275867 9109 Active 2024 [facility] 5 14:16:15 Uncontrol led type 2 diabetes mellitus 576771270 Active 2024 [facility] 5 13:29:56 Problem Notes None recorded. Medical Equipment None Reported. Allergies Allergen ID Allergen Name Allergen Category Reaction Reaction Severity Criticality Documentation Date Start Date Code Code System Note Provider Name and Address Organization Details Recorded Time 36714 Product containin g penicilli n (product) medicatio n Not available Not available Not available 09/08/2022 47362 8001 SNOMED Comme nt: Recor ded 11/16 3:30P M by Mckayla wick LPN, Offic e Visit ; Promo lulú; Adry krause ce: *; ; Not Available [facility] 3 02:29:00 16941 codeine hydrochlo ride Not available Not available Not available Not available 09/08/2022 79121 66 RxNorm Comme nt: Recor ded 11/16 3:30P M by Mckayla wick, PERL DEVELOPER, Offic e Visit ; Divina chino; Adry krause ce: *; ; Not Available [facility] 3 02:29:00 56379 aspirin medicatio n Not available Not available Not available 09/08/2022 1191 RxNorm Comme nt: Recor ded 11/16 3:30P M by Mckayla wick, RODY, Offic e Visit ; Divina chino; Adry krause ce: *; ; Not Available [facility] 3 02:29:00 Medications Name Sig Start Date Stop Date Status Note LastModified by Organization Details LastModified Time Singulair 10 mg tablet 2005 active Recorded 6 3:30PM by Morgan Charles MD, Office Visit; Not Available Not Available Not Available losartan 50 mg tablet TAKE 1 TABLET BY MOUTH EVERY DAY active Not Available Not Available No t Available ondansetro n HCl 4 mg tablet TAKE 1 TABLET BY MOUTH DAILY NEEDED FOR NAUSEA OR VOMITING active Not Available Not Available No t Available clonidine HCl 0.3 mg tablet TAKE 1/2 TABLET BY MOUTH DAILY active Not Available Not Available No t Available potassium chloride ER 10 mEq tablet,ext ended release TAKE 1 TABLET BY MOUTH EVERY DAY active Not Available Not Available No t Available chlorthali done 25 mg tablet TAKE 1 TABLET BY MOUTH EVERY DAY active Not Available Not Available No t Available citalopram 20 mg tablet TAKE 1 TABLET BY MOUTH EVERY DAY active Not Available Not Available No t Available amlodipine 10 mg tablet TAKE 1 TABLET BY MOUTH EVERY DAY active Not Available Not Available No t Available pantoprazo le 40 mg tablet,del ayed release TAKE 1 TABLET BY MOUTH EVERY DAY active Not Available Not Available No t Available furosemide 20 mg tablet TAKE 1 TABLET BY MOUTH EVERY DAY NEEDED FOR EDEMA active Not Available Not Available No t Available metoprolol succinate ER 25 mg tablet,ext ended release 24 hr TAKE 1 TABLET BY MOUTH EVERY DAY active Not Available Not Available No t Available carbidopa 25 mg-levodop a 100 mg tablet TAKE 1 TABLET BY MOUTH AT 10AM, 1 PM, 4PM, 7PM, AND 10 PM. active Not Available Not Available No t Available Zocor 40 mg tablet QD active 0; Recorded 6 3:30PM by Demetra Jiménez LPN, Office Visit; Not Available Not Available Not Available Ventolin HFA 90 mcg/actuat ion aerosol inhaler INHALE 2 PUFFS BY MOUTH EVERY 6 HOURS active Not Available Not Available No t Available rosuvastat in 5 mg tablet TAKE 1 TABLET BY MOUTH EVERY DAY active Not Available Not Available No t Available omeprazole QD active 0; Recorded 6 3:30PM by Demetra Jiménez LPN, Office Visit; Not Available Not Available Not Available Nasarel UAD 2005 active Insurance will not pay for Rhinocort ; Recorded 6 5:10PM by Demetra Jiménez LPN, Phone Encounter ; Refill Quantity: 1; Solution; Not Available Not Available Not Available lorazepam BID active 0; Recorded 6 3:30PM by Demetra Jiménez LPN, Office Visit; Not Available Not Available Not Available Azmacort active 0; Recorded 6 3:30PM by Demetra Jiménez LPN, Office Visit; Not Available Not Available Not Available dicyclomin e BID PRN active 0; Recorded 6 3:30PM by Demetra Jiménez LPN, Office Visit; Not Available Not Available Not Available glipizide BID active 0; Recorded 6 3:30PM by Demetra Jiménez LPN, Office Visit; Not Available Not Available Not Available Cozaar QD active 0; Recorded 6 3:30PM by Demetra Jiménez LPN, Office Visit; Not Available Not Available Not Available Avandia BID active 0; Recorded 6 3:30PM by Demetra Jiménez LPN, Office Visit; Not Available Not Available Not Available Atrovent HFA active 0; Recorded 6 3:30PM by Demetra Jiménez LPN, Office Visit; Not Available Not Available Not Available fluticason e furoate 100 mcg-vilant zaira 25 mcg/dose inhalation powder TAKE 1 PUFF BY MOUTH EVERY DAY active Not Available Not Available No t Available clonidine HCl BID active 0; Recorded 6 3:30PM by Demetra Jiménez, PERL DEVELOPER, Office Visit; Not Available Not Available Not Available Tresiba FlexTouch U-200 insulin 200 unit/mL (3 mL) subcutaneo us pen INJECT 40 UNITS SUBCUTANE OUSLY DAILY active Not Available Not Available No t Available Fiasp FlexTouch U-100 Insulin 100 unit/mL (3 mL) subcutaneo us pen ADMINISTE R 10 UNITS UNDER THE SKIN 3 TIMES DAILY BEFORE MEALS active Not Available Not Available No t Available Admelog SoloStar U-100 Insulin lispro 100 unit/mL subcutaneo us pen INJECT 10 UNITS SUBCUTANE OUSLY 3 TIMES DAILY AFTER A MEAL active Not Available Not Available No t Available BD Thuy 2nd Gen Pen Needle 32 gauge x 5/32 USE 4 TIMES DAILY active Not Available Not Available No t Available Vitals Date Recorded Heart rate Respiratory rate Body temperature Oxygen saturation Systolic And Diastolic Provider Name and Address Organization Details Last Updated DateTime 5 88 /min 20 /min 98.5 [degF] 98 % 136/74 mm[Hg] [facility] 5 14:17:06 Date Recorded Heart rate Respiratory rate Body temperature Oxygen saturation Systolic And Diastolic Provider Name and Address Organization Details Last Updated DateTime 5 66 /min 18 /min 97.5 [degF] 97 % 140/70 mm[Hg] [facility] 5 12:20:39 Date Recorded Body weight Heart rate Respiratory rate Body temperature Oxygen saturation Systolic And Diastolic Provider Name and Address Organization Details Last Updated DateTime 5 62395.5 9 g 57 /min 20 /min 97.5 [degF] 94 % 115/62 mm[Hg] [facility] 5 15:00:07 Date Recorded Body weight Heart rate Respiratory rate Body temperature Oxygen saturation Systolic And Diastolic Provider Name and Address Organization Details Last Updated DateTime 5 84712 g 80 /min 20 /min 97.8 [degF] 98 % 120/67 mm[Hg] [facility] 5 13:06:29 Date Recorded Body weight Heart rate Respiratory rate Body temperature Oxygen saturation Systolic And Diastolic Provider Name and Address Organization Details Last Updated DateTime 5 45750.4 1 g 78 /min 18 /min 98.5 [degF] 98 % 122/68 mm[Hg] ELTON PERDOMO [facility], [facility] 5 13:28:45 Social History None recorded. Functional Status None recorded. Mental Status None recorded. Family History Nothing Reported. Medical History No medical history recorded. Gynecological HistoryNo gynecological history recorded. Obstetrics History GPAL:G 0 P 0 0 0 0 Immunizations Vaccine Type Date Status Note Provider Nam e and Address Organization Details Recorded Time Influenza, split virus, trivalent, preservative 3 completed Not Available [facility] 01/25/2025 18:31:31 Influenza, high-dose, trivalent, PF 6 completed Not Available [facility] 01/25/2025 18:31:31 Pneumococcal conjugate PCV 13 7 completed Not Available [facility] 01/25/2025 18:31:31 Influenza, high-dose, trivalent, PF 7 completed Not Available [facility] 01/25/2025 18:31:31 Influenza, split virus, trivalent, preservative 0 completed Not Available [facility] 01/25/2025 18:31:31 Influenza, split virus, trivalent, preservative 1 completed Not Available [facility] 01/25/2025 18:31:31 Influenza, split virus, trivalent, preservative 3 completed Not Available [facility] 01/25/2025 18:31:31 Past Encounters Encounter ID Performer Location Encounter Start Date Encounter Closed Date Diagnosis/Indication Diagnosis SNOMED-CT Code Diagnosis ICD10 Code Diagnosis IMO Codes Diagnosis Note [id number] Martin Hackett DO [facility] ([facility]) [address] [place] [address] 03/16/2024 08:20:28 03/31/2024 07:38:43 Lewy body dementia with behavioral disturbance 8830104198 30765 G31.83 Hospital i npatient stay within past 30 days 6376313115 106 Z76.89 Essential hypertension 26962239 I10 Hyperglyce puja due to type 2 diabetes mellitus 5757600803 89362 E11.65 [id number] Martin Hackett DO [facility] ([facility]) [address] [place] [address] 5 03/16/2024 14:27:24 03/17/2024 15:31:25 Lewy body dementia with behavioral disturbance 4862812054 47250 G31.83 [id number] Martin Hackett [facility] ([facility]) [address] [place] [address] 5 03/30/2024 07:38:05 04/07/2024 08:15:08 Benign essential hypertension 9393047 I10 Lewy body dementia with behavioral disturbance 3888443737 50739 G31.83 Hypokalemia 88532527 E87 .6 [id number] Martin Hackett [facility] ([facility]) [address] [place] [address] 5 05/04/2024 07:53:59 05/04/2024 16:38:18 Lewy body dementia with behavioral disturbance 1914745751 76845 G31.83 Benign ess ential hypertension 8244710 I10 Anxiety disorder 06 F41.9 [id number] Maritn Hackett [facility] ([facility]) [address] [place] [address] 5 06/04/2024 08:04:52 06/07/2024 07:49:26 Benign essential hypertension 7066460 I10 Lewy body dementia with behavioral disturbance 2040347773 30301 G31.83 Anxiety disorder 06 F41.9 Asthma 578062254 J45.90 9 [id number] Martin Hackett [facility] ([facility]) [address] [place] [address] 5 06/04/2024 08:05:33 06/06/2024 14:13:13 [id number] Martin Hackett [facility] ([facility]) [address] [place] [address] 5 07/02/2024 08:14:57 07/07/2024 11:50:55 Lewy body dementia with behavioral disturbance 8075805696 61575 G31.83 Benign ess ential hypertension 5868757 I10 Hyperglyce puja due to type 2 diabetes mellitus 2520525595 71174 E11.65 [id number] Martin Hackett DO [facility] ([facility]) [address] [place] [address] 5 07/23/2024 10:56:57 08/03/2024 17:03:16 Lewy body dementia with behavioral disturbance 1194162115 95983 G31.83 Type 2 bruce betes mellitus without complication 163461633 Z79.4 [id number] Martin Hackett DO [facility] ([facility]) [address] [place] [address] 5 08/24/2024 09:42:20 08/26/2024 09:36:32 Benign essential hypertension 3736431 I10 Lewy body dementia with behavioral disturbance 2642884624 15194 G31.83 Uncontroll ed type 2 diabetes mellitus 470528053 E11.65 81095808 [id number] Martin Hackett DO [facility] ([facility]) [address] [place] [address] 5 09/28/2024 12:14:48 10/01/2024 09:51:12 Lewy body dementia with behavioral disturbance 6143210343 40587 G31.83 Benign ess ential hypertension 5048079 I10 Type 2 bruce betes mellitus without complication 498733047 Z79.4 [id number] Martin Hackett DO [facility] ([facility]) [address] [place] [address] 5 10/19/2024 11:29:04 10/20/2024 15:56:30 Benign essential hypertension 1357440 I10 Lewy body dementia with behavioral disturbance 0072413532 86839 G31.83 Hypercholesterolemia 136 95835 E78.00 [id number] Martin Hackett [facility] ([facility]) [address] [place] [address] 5 12/07/2024 14:04:06 12/09/2024 08:38:23 Lewy body dementia with behavioral disturbance 7313741138 59154 G31.83 Type 2 bruce betes mellitus without complication 816742056 Z79.4 [id number] Martin Hackett [facility] ([facility]) [address] [place] [address] 12/31/2024 09:12:35 01/04/2025 13:12:49 Lewy body dementia with behavioral disturbance 5889790299 30780 G31.83 Anxiety disorder 6873671 06 F41.9 Type 2 bruce betes mellitus without complication 465583080 Z79.4 Hyperglyce puja due to type 2 diabetes mellitus 1667494188 18186 E11.65 Essential hypertension 79031250 I10 Health Concerns Section Related Observation LastModified by Organization Detai ls LastModified Time None Recorded Concern Status LastModified by Organization Details LastModified Time None Recorded Advance Directives Directive None Recorded Payers Insurance Date Sequence Insurance Name Policy Number Policy [place] Covered Member ID [place] Member ID Guarantor Name 12/30/2024 1 [place]: [facility] Yudy Svetlana Aminata [id number] Yudy Coates 12/30/2024 2 [place] Yudy Coates [id number] Yudy Svetlana Aminata 12/30/2024 [place] - [facility]MEDICARE) Yudy Mota Aminata [id number] Yudy Mota Aminata 12/30/2024 [place] [facility] Yudy Mota Aminata [id number] Yudy Svetlana Aminata Notes Date Note Type Note Provider Name and Address Organization Details Recorded Time 09/28/2024 text/html DementiaReported by PatientHPIFor quality, patient reportsshort term memory loss. For severity, patient reportsmoderate. For context, patient reportsno alcohol use. For associated symptoms, patient reportsno anxiety.ROS as noted in the HPI No concerns per staff or pt. Martin Hackett, DO [address] [place] [address], [phone], [facility] 09/28/2024 15:25:16 10/19/2024 text/html DementiaReported by PatientHPIFor quality, patient reportsshort term memory loss. For severity, patient reportsmoderate. For context, patient reportsno alcohol use. For associated symptoms, patient reportsno anxiety.ROS as noted in the HPI No concerns per staff or pt. Martin Hackett DO [address] [place] [address], [phone], [facility] 10/19/2024 15:22:32 12/07/2024 text/html DementiaReported by PatientHPIFor quality, patient reportsshort term memory loss. For severity, patient reportsmoderate. For context, patient reportsno alcohol use. For associated symptoms, patient reportsno anxiety.ROS as noted in the HPI No concerns per staff or pt. Martin Hackett DO [address] [place] [address], [phone], [facility] 12/08/2024 14:56:18 12/31/2024 text/html DementiaReported by PatientHPIFor quality, patient reportsshort term memory loss. For severity, patient reportsmoderate. For context, patient reportsno alcohol use. For associated symptoms, patient reportsno anxiety.ROS as noted in the HPI No concerns per staff or pt. Martin Hackett DO [address] [place] [address], [phone], [facility] 01/03/2025 14:51:24 01/21/2025 text/html DementiaReported by PatientHPIFor quality, patient reportsshort term memory loss. For severity, patient reportsmoderate. For context, patient reportsno alcohol use. For associated symptoms, patient reportsno anxiety.ROS as noted in the HPI No concerns per staff or pt. Not Available Not Available Not Available OBGyn Episode No OBEpisode recorded.
--- OUTSIDE RECORDS SUMMARY | 2025-02-05 09:55 | XMS_ITS | Encounter Summary ---
Author Organization [employer] [facility] Address [address] [place] [address] Care Team Providers Care Gum Puller Name Role Phone Unavailable Primary Care Provider Unavailabl e Encounter Details Date Type Department Care Team (Latest Contact Info) Description 02/04/2006 Outpatient Historical [facility] [address] 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
--- OUTSIDE RECORDS SUMMARY | 2025-02-05 09:55 | XMS_ITS | Encounter Summary ---
Author Organization [email or web address] [facility] Address [address] [place] [address] Care Team Providers Care Folding Machine Setter Name Role Phone Unavailable Primary Care Provider Unavailabl e Encounter Details Date Type Department Care Team (Latest Contact Info) Description 02/04/2006 Outpatient Historical [facility] [place] [address] 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
--- OUTSIDE RECORDS SUMMARY | 2025-02-05 09:55 | XMS_ITS | Encounter Summary ---
Author Organization [facility] Address [address] [place] [address] Care Team Providers Care Furniture Delivery Driver Name Role Phone Unavailable Primary Care Provider Unavailabl e Encounter Details Date Type Department Care Team (Latest Contact Info) Description 03/13/2006 Outpatient Historical [facility] [address] [facility] [address] [place] [id number] Jorge Hunter S, DO [address] [place] [address] Closed Fracture of Multiple Ribs, Unspecified (Primary Dx); Unspecified Chest Pain; Contusion of Hip; Pain in Joint, Hand Social History Tobacco Use Types Packs/Day Years Used Date Smoking Tobacco: Never Assessed Comments Unknown Sex and Gender Information Value Date Recorded Sex Assigned at Not on file 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
--- OUTSIDE RECORDS SUMMARY | 2025-02-05 09:55 | XMS_ITS | Clinical Summary ---
Author Organization [facility] Address [address] [place] [address] Care Team Providers Care Manager Endoscopy Name Role Phone Unavailable Primary Care Provider Unavailabl e Allergies No known active allergies Medications CALCIUM CARBONATE (CALCIUM 600 PO) Take by mouth. Activ e TRAMADOL HCL/ACETAMINOPH EN (TRAMADOL-ACETA MINOPHEN PO) Take by mouth. Ac tive simvastatin (ZOCOR) 40 mg Oral Tab Take 40 mg by mouth Daily LATE. Active dicyclomine (BENTYL) 20 mg Oral Tab Take 20 mg by mouth 4 times daily. Active glipiZIDE (GLUCOTROL) 10 mg Oral Tab Take 10 mg by mouth 2 times daily. Active omeprazole (PRILOSEC) 20 mg Oral CpDR Take 20 mg by mouth daily. Active lisinopril (PRINIVIL) 20 mg Oral Tab Take 20 mg by mouth daily. Active AMLODIPINE/ATOR VAST YASMIN (AMLODIPINE-RADHA RVASTATIN PO) Take by mouth. A ctive triamcinolone acetonide (AZMACORT) 75 mcg/Actuation Inhalation Aero Take 2 Puffs by inhalation. Active ipratropium bromide (ATROVENT) 0.03 % Both Nostril SprA Administer 2 Sprays in each nostril 2 times daily. Active INSULIN GLARGINE,HUM.RE C.ANLOG (LANTUS SC) Inject by subcutaneous injection. Active fluticasone (FLONASE) 50 mcg/Actuation Both Nostril SpSnIndications :ETD (eustachian tube dysfunction),Ea r fullness Administer 2 Sprays in each nostril daily. 1 Bottle prn 9 Active mometasone (NASONEX) 50 mcg/Actuation Both Nostril SpryIndications :ETD (eustachian tube dysfunction),Ea r fullness,Allerg ic rhinitis Administer 1-2 Sprays in each nostril daily. Take this medication until the sample is empty and then fill Flonase prescription and use it. 1 Bottle prn 9 Active Active Problems No known active problems Social History Tobacco Use Types Packs/Day Years Used Date Smoking Tobacco: Never Assessed Comments No Sex and Gender Information Value Date Recorded Sex Assigned at Not on file Legal Sex Female 5:05 AM [employer] Gender Identity Not on file Sexual Orientation Not on file Last Filed Vital Signs Vital Sign Reading Time Taken Comments Blood Pressure - - Pulse - - Temperature - - Respiratory Rate - - Oxygen Saturation - - Inhaled Oxygen Concentration - - Weight 79.8 kg (176 lb) 08/24/2008 1:10 PM CDT Height 154.9 cm (5' 1 ) 08/24/2008 1:10 PM CDT Body Mass Index 33.25 08/24/2008 1:10 PM CDT Plan of Treatment Health Maintenance Due Date Last Done Comments DTAP/TDAP/TD VACCINES (1 - Tdap) 06/19/1959 PNEUMOCOCCAL VACCINE 50+ YEARS (1 of 1 - PCV) 06/18/18 91 ZOSTER VACCINE (1 of 2) 1990 OSTEOPOROSIS SCREENING 2005 RSV VACCINE (60+ or ) (1 - 1-dose 75+ series) 06/19/2015 INFLUENZA VACCINE (#1) 2024 Insurance MEDICARE PART A AND B
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
--- OUTSIDE RECORDS SUMMARY | 2025-02-05 09:55 | XMS_ITS | Continuity of Care Document ---
Author Organization [facility] Rai Pollack [facility] Mika, [place], [facility]) Address [address] [place] [address] Assessment No assessment recorded. Plan of Treatment [...] Modified By Organization Details Last Modified Time 12/07/2024 [id number] Sugars controlled. Vitals stable. [email or web address] Not available 12/07/2024 15:01:28 Reason for Referral None Reported. Problems Name Problem SNOMED Code Status Onset Date Resolution Date Notes Provider Name and Address Organization Details Recorded Time Benign essential hypertens ion 6709821 Active 2005 Hypertens ion; 6 3:30PM by Demetra Jiménez LPN, Office Visit; Promoted; acuity set as *; Not Available [facility] 3 03:08:38 Chronic arthritis 12924000 Active 2005 Chronic Arthritis ; 6 3:30PM by Demetra Jiménez LPN, Office Visit; Promoted; acuity set as *; Not Available [facility] 3 03:08:38 History of tubal ligation 000637618 Active 2005 Tubal Ligation; 6 3:30PM by Demetra Jiménez LPN, Office Visit; Promoted; acuity set as *; Not Available [facility] 3 03:08:38 Anxiety disorder 185194737 Active 2005 Anxiety Disorder; 6 3:30PM by Demetra Jiménez LPN, Office Visit; Promoted; acuity set as *; Not Available [facility] 3 03:08:38 Appendect georgiana Active 2005 Appendect georgiana; 6 3:30PM by Demetra Jiménez LPN, Office Visit; Promoted; acuity set as *; Not Available [facility] 3 03:08:38 Hyperchol esterolem ia 74209629 Active 2005 Hyperchol esterolem ia; 6 3:30PM by Demetra Jiménez LPN, Office Visit; Promoted; acuity set as *; Not Available [facility] 3 03:08:39 Asthma 926730870 Active 2005 Asthma; 6 3:30PM by Demetra Jiménez LPN, Office Visit; Promoted; acuity set as *; Not Available [facility] 3 03:08:39 Type 2 diabetes mellitus without complicat ion 515375324 Active 2005 Non-Insul in Dependent Diabetes Mellitus; 6 3:30PM by Demetra Jiménez LPN, Office Visit; Promoted; acuity set as *; Not Available [facility] 3 03:08:39 Acute ulcer of skin 51928515739 9108 Active 2005 Perferate d Ulcer; 6 3:30PM by Demetra Jiménez LPN, Office Visit; Promoted; acuity set as *; Not Available [facility] 3 03:08:39 Cholecyst ectomy Active 2005 Cholecyst ectomy; 6 3:30PM by Demetra Jiménez LPN, Office Visit; Promoted; acuity set as *; Not Available [facility] 3 03:08:39 Arthrosco py Active 2005 Arthrosco py and Open Rotator Cuff Repair Rt Shoulder; 11-16; 6 2:24PM by Demetra Jiménez LPN, Historica l Summary; Promoted; acuity set as *; Not Available [facility] 3 03:08:39 Lewy body dementia with behaviora l jerryan 93912407760 9107 Active 2024 ELTON paz, [facility] 5 14:15:48 Essential hypertens ion 23041744 Active 2024 ELTON paz, [facility] 5 14:16:06 Hyperglyc emia due to type 2 diabetes mellitus 10065366862 9109 [facility] 14:16:15 Uncontrol led type 2 diabetes mellitus 241878579 Active 20[facility] 5 13:29:56 Problem Notes None recorded. Medical Equipment None Reported. Allergies Allergen ID Allergen Name Allergen Category Reaction Reaction Severity Criticality Documentation Date Start Date Code Code System Note Provider Name and Address Organization Details Recorded Time 54808 Product containin g penicilli n (product) medicatio n Not available Not available Not available 09/08/2022 79470 8001 SNOMED Comme nt: Recor ded 11/16 3:30P M by Mckayla wick LPN, Offic e Visit ; Promo lulú; Signi fican ce: *; ; Not Available [facility] 3 02:29:00 67558 codeine hydrochlo ride Not available Not available Not available Not available 09/08/2022 08068 66 RxNorm Comme nt: Recor ded 11/16 3:30P M by Mckayla wick LPN, Offic e Visit ; Promo lulú; Signi fican ce: *; ; Not Available [facility] 3 02:29:00 68868 aspirin medicatio n Not available Not available Not available 09/08/2022 1191 RxNorm Comme nt: Recor ded 11/16 3:30P M by Mckayla wick, RODY, Offic e Visit ; Promo lulú; Signi fican ce: *; ; Not Available [facility] 3 02:29:00 Medications Name Sig Start Date [...] Available No t Available Vitals Date Recorded Body weight Heart rate Respiratory rate Body temperature Oxygen saturation Systolic And Diastolic Provider Name and Address Organization Details Last Updated DateTime 5 74232.5 9 g 57 /min 20 /min 97.5 [degF] 94 % 115/62 mm[Hg] ELTON PERDOMO [facility] 5 15:00:07 Social History None recorded. Functional Status None recorded. Mental Status None recorded. Family History Nothing Reported. Medical History No medical history recorded. Gynecological HistoryNo gynecological history recorded. Obstetrics History GPAL:G 0 P 0 0 0 0 Immunizations Vaccine Type Date Status Note Provider Nam e and Address Organization Details Recorded Time Influenza, split virus, trivalent, preservative 3 completed Not Available [facility] 01/25/2025 18:31:31 Influenza, high-dose, trivalent, PF 6 completed Not Available [facility] 01/25/2025 18:31:31 Pneumococcal conjugate PCV 13 7 completed Not Available [facility] 01/25/2025 18:31:31 Influenza, high-dose, trivalent, PF 7 completed Not Available [facility] 01/25/2025 18:31:31 Influenza, split virus, trivalent, preservative 0 completed Not Available [facility] 01/25/2025 18:31:31 Influenza, split virus, trivalent, preservative 1 completed Not Available [facility] 01/25/2025 18:31:31 Influenza, split virus, trivalent, preservative 3 completed Not Available [facility] 01/25/2025 18:31:31 Past Encounters Encounter ID Performer Location Encounter Start Date Encounter Closed Date Diagnosis/Indication Diagnosis SNOMED-CT Code Diagnosis ICD10 Code Diagnosis IMO Codes Diagnosis Note [id number] Martin Hackett DO [facility] ([facility]) [address] [place] [address] 12/07/2024 14:04:06 12/09/2024 08:38:23 Lewy body dementia with behavioral disturbance 2075935380 57888 G31.83 Type 2 bruce betes mellitus without complication 825223109 Z79.4 Health Concerns Section Related Observation LastModified by Organization Detai ls LastModified Time None Recorded Concern Status LastModified by Organization Details LastModified Time None Recorded Payers Encounter Date Sequence Insurance Name Policy Number Policy [place] Covered Member ID [place] Member ID Guarantor Name 12/07/2024 1 [place] Yudy Coates [id number] Yudy Rodriguesmed 12/07/2024 2 [place] Yudy Dashpaula [id number] Yudy Dashpaula Notes Date Note Type Note Provider Name and Address Organization Details Recorded Time 12/07/2024 text/html DementiaReported by PatientHPIFor quality, patient reportsshort term memory loss. For severity, patient reportsmoderate. For context, patient reportsno alcohol use. For associated symptoms, patient reportsno anxiety.ROS as noted in the HPI No concerns per staff or pt. Martin Hackett, DO [address] [place] [address], [phone], [facility]na 12/08/2024 14:56:18 OBGyn Episode No OBEpisode recorded.
--- OUTSIDE RECORDS SUMMARY | 2025-02-05 09:55 | XMS_ITS | Encounter Summary ---
Author Organization [facility] Address [address] [place] [address] Care Team Providers Care Trade Marker Name Role Phone Unavailable Primary Care Provider Unavailabl e Encounter Details Date Type Department Care Team (Latest Contact Info) Description 12/10/2005 Outpatient Historical [facility] Nose [facility] Th[facility]at [address] [place] [id number] Vinh Webb MD [address] [address] Unspecified Conductive Hearing Loss (Primary Dx); Impacted Cerumen Social History Tobacco Use Types Packs/Day Years Used Date Smoking Tobacco: Never Assessed Comments Unknown Sex and Gender Information Value Date Recorded Sex Assigned at Not on file Legal Sex Female 5:05 AM PROGRAM COORDIN[employer] Gender Identity Not on file Sexual Orientation Not on file documented as of this encounter Plan of Treatment Not on file documented as of this encounter Visit Diagnoses Diagnosis Unspecified conductive hearing loss- Primary Impacted cerumen documented in this encounter
--- OUTSIDE RECORDS SUMMARY | 2025-02-05 09:55 | XMS_ITS | Continuity of Care Document ---
Author Organization [place] - [facility], [facility], [facility]) Address [address] [place] [address] Assessment No assessment recorded. Plan of Treatment [...] Modified By Organization Details Last Modified Time 12/31/2024 [id number] Sugars reviewed, and controlled. Mood good. Vitals stable. [email or web address] Not available 12/31/2024 13:08:10 Reason for Referral None Reported. Results Created Date Observation Date Name Description Value Unit Range Abnormal Flag Note LastModifiedBy Organization Detail LastModifiedTime Result Notes None recorded. Problems Name Problem SNOMED Code Status Onset Date Resolution Date Notes Provider Name and Address Organization Details Recorded Time Benign essential hypertens ion 4633848 Active 2005 Hypertens ion; 6 3:30PM by Demetra Jiménez LPN, Office Visit; Promoted; acuity set as *; Not Available [facility] 3 03:08:38 Chronic arthritis 98598393 Active 2005 Chronic Arthritis ; 6 3:30PM by Demetra Jiménez LPN, Office Visit; Promoted; acuity set as *; Not Available [facility] 3 03:08:38 History of tubal ligation 692327196 Active 2005 Tubal Ligation; 6 3:30PM by Demetra Jiménez LPN, Office Visit; Promoted; acuity set as *; Not Available [facility] 3 03:08:38 Anxiety disorder 396803735 Active 2005 Anxiety Disorder; 6 3:30PM by Demetra Jiménez LPN, Office Visit; Promoted; acuity set as *; Not Available [facility] 3 03:08:38 Appendect georgiana Active 2005 Appendect georgiana; 6 3:30PM by Demetra Jiménez LPN, Office Visit; Promoted; acuity set as *; Not Available [facility] 03:08:38 Hyperchol esterolem ia 32492961 Active 2005 Hyperchol esterolem ia; 6 3:30PM by Demetra Jiménez LPN, Office Visit; Promoted; acuity set as *; Not Available [facility] 3 03:08:39 Asthma 293965305 Active 2005 Asthma; 6 3:30PM by Demetra Jiménez LPN, Office Visit; Promoted; acuity set as *; Not Available [facility] 3 03:08:39 Type 2 diabetes mellitus without complicat ion 438970796 Active 2005 Non-Insul in Dependent Diabetes Mellitus; 6 3:30PM by Demetra Jiménez LPN, Office Visit; Promoted; acuity set as *; Not Available [facility] 3 03:08:39 Acute ulcer of skin 91189205870 9108 Active 2005 Perferate d Ulcer; 6 3:30PM by Demetra Jiménez LPN, Office Visit; Promoted; acuity set as *; Not Available [facility] 3 03:08:39 Cholecyst ectomy Active 2005 Cholecyst ectomy; 6 3:30PM by Demetra Jiménez LPN, Office Visit; Promoted; acuity set as *; Not Available [facility] 3 03:08:39 Arthrosco py Active 2005 Arthrosco py and Open Rotator Cuff Repair Rt Shoulder; 11-16; 6 2:24PM by Demetra Jiménez LPN, Historica l Summary; Promoted; acuity set as *; Not Available [facility] 3 03:08:39 Lewy body dementia with behaviora l jerryan ce 21001128866 9107 [facility] 5 14:15:48 Essential hypertens ion 11092627 Active 2024 [facility] 5 14:16:06 Hyperglyc emia due to type 2 diabetes mellitus 21923132138 9109 Active 2024 [facility] 5 14:16:15 Uncontrol led type 2 diabetes mellitus 045414299 Active 2024 [facility] 5 13:29:56 Problem Notes None recorded. Medical Equipment None Reported. Allergies Allergen ID Allergen Name Allergen Category Reaction Reaction Severity Criticality Documentation Date Start Date Code Code System Note Provider Name and Address Organization Details Recorded Time 95917 Product containin g penicilli n (product) medicatio n Not available Not available Not available 09/08/2022 82630 8001 SNOMED Comme nt: Recor ded 11/16 3:30P M by Mckayla wick, REAL ESTATE TRANSACTION MANAGER, Offic e Visit ; Promo lulú; Signi ficada ce: *; ; Not Available [facility] 3 02:29:00 03533 codeine hydrochlo ride Not available Not available Not available Not available 09/08/2022 03748 66 RxNorm Comme nt: Recor ded 11/16 3:30P M by Mckayla wick, REAL ESTATE TRANSACTION MANAGER, Offic e Visit ; Promo lulú; Signi ficada ce: *; ; Not Available [facility] 3 02:29:00 90589 aspirin medicatio n Not available Not available Not available 09/08/2022 1191 RxNorm Comme nt: Recor ded 11/16 3:30P M by Mckayla wick, REAL ESTATE TRANSACTION MANAGER, Offic e Visit ; Promo lulú; Signi fican ce: *; ; Not Available [facility] 3 02:29:00 Medications Name Sig Start Date [...] BID active 0; Recorded 6 3:30PM by Deemtra Jiménez LPN, Office Visit; Not Available Not [...] 2nd Gen Pen Needle 32 gauge x USE 4 TIMES DAILY active Not Available Not Available No t Available Vitals Date Recorded Body weight Heart rate Respiratory rate Body temperature Oxygen saturation Systolic And Diastolic Provider Name and Address Organization Details Last Updated DateTime 5 86513 g 80 /min 20 /min 97.8 [degF] 98 % 120/67 mm[Hg] ELTON PERDOMO [facility], [facility] 5 13:06:29 Social History None recorded. Functional Status None recorded. Mental Status None recorded. Family History Nothing Reported. Medical History No medical history recorded. Gynecological HistoryNo gynecological history recorded. Obstetrics History GPAL:G 0 P 0 0 0 0 Immunizations Vaccine Type Date Status Note Provider Nam e and Address Organization Details Recorded Time Influenza, split virus, trivalent, preservative 3 completed Not Available [facility] 01/25/2025 18:31:31 Influenza, high-dose, trivalent, PF 6 completed Not Available [facility] 01/25/2025 18:31:31 Pneumococcal conjugate PCV 13 7 completed Not Available [facility] 01/25/2025 18:31:31 Influenza, high-dose, trivalent, PF 7 completed Not Available [facility] 01/25/2025 18:31:31 Influenza, split virus, trivalent, preservative 0 completed Not Available [facility] 01/25/2025 18:31:31 Influenza, split virus, trivalent, preservative 1 completed Not Available [facility] 01/25/2025 18:31:31 Influenza, split virus, trivalent, preservative 3 completed Not Available [facility] 01/25/2025 18:31:31 Past Encounters Encounter ID Performer Location Encounter Start Date Encounter Closed Date Diagnosis/Indication Diagnosis SNOMED-CT Code Diagnosis ICD10 Code Diagnosis IMO Codes Diagnosis Note [id number] Martin Hackett DO [facility] ([facility]) [address] [place] [phone] 12/07/2024 14:04:06 12/09/2024 08:38:23 Lewy body dementia with behavioral disturbance 7792421583 99216 G31.83 Type 2 bruce betes mellitus without complication 608597330 Z79.4 [id number] Martin Hackett DO [facility] ([facility]) [address] [place] [address] 12/31/2024 09:12:35 01/04/2025 13:12:49 Lewy body dementia with behavioral disturbance 3062390047 02531 G31.83 Anxiety disorder 8478585 06 F41.9 Type 2 bruce betes mellitus without complication 539091593 Z79.4 Hyperglyce puja due to type 2 diabetes mellitus 6579074087 12642 E11.65 Essential hypertension 03605779 I10 Health Concerns Section Related Observation LastModified by Organization Detai ls LastModified Time None Recorded Concern Status LastModified by Organization Details LastModified Time None Recorded Payers Encounter Date Sequence Insurance Name Policy Number Policy Pitt Covered Member ID Pitt Member ID Guarantor Name 12/31/2024 1 [place] Yudy Coates [id number] Yduy Coates 12/31/2024 2 [place] Yudy Coates [id number] Yudy Coates Notes Date Note Type Note Provider Name and Address Organization Details Recorded Time 12/31/2024 text/html DementiaReported by PatientHPIFor quality, patient reportsshort term memory loss. For severity, patient reportsmoderate. For context, patient reportsno alcohol use. For associated symptoms, patient reportsno anxiety.ROS as noted in the HPI No concerns per staff or pt. Martin Hackett DO [address] [place] [address], [phone], [facility], [facility] 01/03/2025 14:51:24 OBGyn Episode No OBEpisode recorded.
--- NOTE | 2025-02-05 09:56 | W.ED.NEUROSD ---
HPI - Neuro Symptoms/Deficit General: Chief Complaint: General Medical Stated Complaint: COVID + Time Seen by Provider: 02/05/25 09:48 Source: patient and EMS Mode of arrival: EMS Limitations: altered mental status History of Present Illness: 84-year-old female has a history of dementia is here from group home. Patient recently tested positive for COVID per EMS patient's had some increased weakness with the COVID that this morning stated she was having a hard time swallowing when she had eaten. Patient here is alert to self only which is her baseline not really able answer questions very appropriately but is able to follow commands. She denies any pain at this time. Related Data Home Medications ?Medication ?Instructions ?Recorded ?Confirmed acetaminophen 500 mg tablet 500 mg PO Q6H PRN Pain 03/24/19 03/07/24 (Tylenol Extra Strength) albuterol sulfate 90 mcg/actuation 2 puff inhalation Q4H PRN 03/24/19 03/07/24 aerosol inhaler (Ventolin HFA) Shortness Of Breath amlodipine 10 mg tablet 10 mg PO DAILY 03/24/19 03/07/24 chlorthalidone 25 mg tablet 25 mg PO DAILY 03/24/19 03/07/24 citalopram 20 mg tablet 20 mg PO DAILY 03/24/19 03/07/24 clonidine HCl 0.3 mg tablet 0.15 mg PO DAILY 03/24/19 03/07/24 fluticasone furoate 100 1 inh inhalation DAILY 03/24/19 03/07/24 mcg-vilanterol 25 mcg/dose inhalation powder (Breo Ellipta) losartan 50 mg tablet 50 mg PO DAILY 03/24/19 03/07/24 metoprolol succinate 25 mg 12.5 mg PO DAILY 03/24/19 03/07/24 tablet,extended release 24 hr simethicone 125 mg capsule 125 mg PO DAILY PRN Indigestion 03/24/19 03/07/24 furosemide 20 mg tablet 20 mg PO DAILY PRN Edema 03/07/24 03/07/24 ondansetron HCl 4 mg tablet 4 mg PO DAILY PRN Nausea And 03/07/24 03/07/24 Vomiting pantoprazole 40 mg tablet,delayed 40 mg PO DAILY 03/07/24 03/07/24 release potassium chloride 10 mEq 10 meq PO DAILY PRN Edema 03/07/24 03/07/24 tablet,extended release rosuvastatin 5 mg tablet 5 mg PO DAILY 03/07/24 03/07/24 Previous Rx's ?Medication ?Instructions ?Recorded carbidopa 25 mg-levodopa 100 mg See Rx Instructions .Route 07/31/23 tablet .COMPLEX #450 tabs insulin degludec 200 unit/mL (3 10 unit (0.05 mL) SUBCUT DAILY #10 03/12/24 mL) subcutaneous pen (Tresiba mL FlexTouch U-200 insulin) insulin lispro 100 unit/mL See Rx Instructions .Route 03/12/24 subcutaneous solution (Humalog .COMPLEX #10 mL U-100 Insulin) Allergies Allergy/AdvReac Type Severity Reaction Status Date / Time Opioids - Morphine Analogues Allergy nausea/vomi Verified 02/05/25 11:16 ting PFS ED PFSH: Family History Other Diabetes Hypertension Denies family history of CAD (coronary artery disease) Cancer Stroke Social History Smoking and tobacco/nicotine status: never used tobacco/nicotine Alcohol intake: never Substance/Drug Use: never NIH stroke score NIHSS: Level Of Consciousness - 1a: 0 Level Of Consciousness Questions - 1b: Both Correct Level Of Consciousness Commands - 1c: Both Correct Best Gaze - 2: Normal Visual Castro - 3: No Visual Loss Facial Palsy - 4: Normal Motor Arm Right - 5: No Drift Motor Arm Left - 5: No Drift Motor Leg Right - 6: No Drift Motor Leg Left - 6: No Drift Limb Ataxia - 7: Absent Sensory - 8: Normal Best Language - 9: No Aphasia Dysarthia - 10: Normal Extinction And Inattention - 11: 0 Score: Total Score: 0 Physical Exam Const: COMMON NORMALS: negative for patient oriented x3 HENMT: COMMON NORMALS: normocephalic and atraumatic HEAD & SCALP: normocephalic and atraumatic Eye: COMMON NORMALS: Equal, round and reactive pupils present and EOMs intact bilaterally PUPIL: Yes Equal, round and reactive pupils present Neck/C-Spine: COMMON NORMALS: full ROM and supple Chest: COMMONS NORMALS: normal inspection of the chest and normal palpation of entire chest wall Resp: COMMON NORMALS: normal respiratory effort, No retractions, No use of accessory muscles and clear to auscultation bilaterally AUSCULTATION: clear to auscultation bilaterally Cardio: COMMON NORMALS: regular rate, regular rhythm and No murmurs present (Cardio) RATE: regular rate RHYTHM: regular rhythm GI: COMMON NORMALS: Normal to inspection, nondistended, normoactive bowel sounds present, Soft to palpation, non-tender and no masses PALPATION: Yes Soft to palpation Extremity: COMMON NORMALS: normal to inspection and full ROM Neuro: COMMON NORMALS: moves all extremities and no focal motor deficits; negative for patient oriented x3 CRANIAL NERVES: Yes CN normal except as noted SPEECH: speech normal MOTOR EXAM: 5/5 motor strength present throughout Psych: COMMON NORMALS: mental status grossly normal, Normal thought process present and cooperative THOUGHT PROCESS: Normal thought process present Skin: COMMON NORMALS: no rashes or lesions noted and no wounds GENERAL SKIN EXAM: no rashes or lesions noted Course Vital Signs: Vital signs: Vital Signs Temperature 99.1 F 02/05/25 09:48 Pulse Rate 80 02/05/25 09:48 Respiratory Rate 16 02/05/25 09:48 Blood Pressure 142/78 02/05/25 09:48 Pulse Oximetry 95 02/05/25 09:48 MDM - Neuro Symptoms/Deficit Medical Decision Making 84-year-old female presented here with some difficulty swallowing at the group home she has been well-appearing here lab work showed no significant abnormality head CT showed no acute changes did a oral challenge here she was able to swallow here without any difficulty with no dysphagia here she has no signs of a stroke feel she is stable for discharge follow-up with PCP return if worsening EKG interpreted by me at 1008 normal sinus rhythm heart rate [address] elevation QRS 154 QTc 465 Medical Records I reviewed the patient's medical records. Lab Data I reviewed the patient's lab results. 02/05/25 10:00 02/05/25 10:[address] 02/05/25 09:50 IMPRESSION: 1. No acute intracranial hemorrhage or edema. 2. Moderate cerebral and cerebellar atrophy with small vessel changes. Laboratory Results WBC 4.07 10^3/uL (3.29-11.43) 02/05/25 10:00 RBC 4.51 10^6/uL (3.85-5.65) 02/05/25 10:00 Hgb 13.00 g/dL (11.27-16.99) 02/05/25 10:00 Hct 38.4 % (36-47) 02/05/25 10:00 MCV 85.1 fl (85-98) 02/05/25 10:00 MCH 28.8 pg (27-33) 02/05/25 10:00 MCHC 33.9 g/dL (30-55) 02/05/25 10:00 RDW 12.8 % (12.1-15.1) 02/05/25 10:00 Plt Count 195 10^3/cmm (157-399) 02/05/25 10:00 MPV 10.1 fL (7.4-10.4) 02/05/25 10:00 Neut % (Auto) 44.5 % 02/05/25 10:00 Lymph % (Auto) 38.6 % 02/05/25 10:00 [place] % (Auto) 15.5 % 02/05/25 10:00 Eos % (Auto) 1.0 % 02/05/25 10:00 Baso % (Auto) 0.2 % 02/05/25 10:00 Neut # (Auto) 1.81 10^3/uL (1.8-7.7) 02/05/25 10:00 Lymph # (Auto) 1.6 10^3/uL (0.8-4.8) 02/05/25 10:00 [place] # (Auto) 0.6 10^3/uL (0.2-0.9) 02/05/25 10:00 Eos # (Auto) 0.0 10^3/uL (0.0-0.8) 02/05/25 10:00 Baso # (Auto) 0.0 10^3/uL (0.0-0.1) 02/05/25 10:00 Nucleated RBC % (auto) 0 % 02/05/25 10:00 Nucleated RBCs # 0.0 /100WBC 02/05/25 10:00 Sodium 139 mmol/L (136-145) 02/05/25 10:00 Potassium 3.4 mmol/L (3.5-5.1) L 02/05/25 10:00 Chloride 101 mmol/L (98-107) 02/05/25 10:00 Carbon Dioxide 26 mmol/L (22-29) 02/05/25 10:00 Anion Gap 15.4 (5-19) 02/05/25 10:00 BUN 16 mg/dL (8-23) 02/05/25 10:00 Creatinine 0.6 mg/dL (0.5-0.9) 02/05/25 10:00 GFR Calculation Not Reportable 02/05/25 10:00 Glucose 230 mg/dL (65-115) H 02/05/25 10:00 Calculated Osmolality 296 mOsm/kg (285-295) H 02/05/25 10:00 Calcium 8.9 mg/dL (8.5-10.5) 02/05/25 10:00 Total Bilirubin 0.6 mg/dL (0.15-1.2) 02/05/25 10:00 AST 42 U/L (0-32) H 02/05/25 10:00 ALT 8 U/L (0-33) 02/05/25 10:00 Alkaline Phosphatase 75 U/L (35-105) 02/05/25 10:00 Total Protein 6.7 g/dL (6.6-8.7) 02/05/25 10:00 Albumin 3.8 g/dL (3.5-5.2) 02/05/25 10:00 Globulin 2.9 g/dL (1.3-4.6) 02/05/25 10:00 All radiology interpretation(s) finalized by discharge Discharge Plan Discharge Patient Disposition: Home Clinical Impression: Difficulty swallowing Dementia Qualifiers: Dementia type: unspecified type Dementia severity: unspecified severity Dementia behavioral or psychological symptom: unspecified whether behavioral, psychotic, or mood disturbance or anxiety Qualified Code(s): F03.90 - Unspecified dementia, unspecified severity, without behavioral disturbance, psychotic disturbance, mood disturbance, and anxiety Condition: Stable Prescriptions: No Action clonidine HCl 0.3 mg tablet 0.15 mg PO DAILY metoprolol succinate 25 mg tablet extended release 24 hr 12.5 mg PO DAILY chlorthalidone 25 mg tablet 25 mg PO DAILY losartan 50 mg tablet 50 mg PO DAILY citalopram 20 mg tablet 20 mg PO DAILY albuterol sulfate [Ventolin HFA] 90 mcg/actuation HFA aerosol inhaler 2 puff INHALATION Q4H PRN (Reason: Shortness Of Breath) amlodipine 10 mg tablet 10 mg PO DAILY simethicone 125 mg capsule 125 mg PO DAILY PRN (Reason: Indigestion) acetaminophen [Tylenol Extra Strength] 500 mg tablet 500 mg PO Q6H PRN (Reason: Pain) Breo Ellipta 100-25 mcg/dose blister with device 1 inh INHALATION DAILY carbidopa-levodopa 25-100 mg tablet See Rx Instructions .ROUTE .COMPLEX Qty: 450 3RF Dose Instruction: TAKE 1 TABLET BY MOUTH AT 10 AM, 1 PM, 4 PM, 7 PM, AND 10 PM. Rx Instructions: TAKE 1 TABLET BY MOUTH AT 10 AM, 1 PM, 4 PM, 7 PM, AND 10 PM. ondansetron HCl 4 mg tablet 4 mg PO DAILY PRN (Reason: Nausea And Vomiting) potassium chloride 10 mEq tablet extended release 10 meq PO DAILY PRN (Reason: Edema) pantoprazole 40 mg tablet,delayed release (DR/EC) 40 mg PO DAILY furosemide 20 mg tablet 20 mg PO DAILY PRN (Reason: Edema) rosuvastatin 5 mg tablet 5 mg PO DAILY insulin lispro [Humalog U-100 Insulin] 100 unit/mL Solution See Rx Instructions .ROUTE .COMPLEX Qty: 10 0RF Rx Instructions: 141-180 mg/dl 4 units/SQ 181-220 mg/dl 6 units/SQ 221-260 mg/dl 8 units/SQ 261-300 mg/dl 10 units/SQ 301-350 mg/dl 12 units/SQ 351-400 mg/dl 14 units/SQ greater than 400 mg/dl 16 units/SQ insulin degludec [Tresiba FlexTouch U-200] 200 unit/mL (3 mL) insulin pen 10 unit SUBCUT DAILY Qty: 10 0RF Discharge Orders: Discharge ED (Routine); Ordered 02/05/25 Ordered By: Elly Johnson Referrals: Anamika Ramirez MD [Staff Physician, Family Practice] Discharge Diet: GI Soft Discharge Activity: Resume usual activity Patient Instructions: Dysphagia (ED) Print Language: Ugandan Coding Level of Care Code ED Management Accountant for Benjamin Wallace
[2025-02-05 10:04] LABS: Hematocrit 38.4 % (36-47); Hemoglobin 13.00 g/dL (11.27-16.99); Mean Corpuscular HGB Conc 33.9 g/dL (30-55); Mean Corpuscular Hemoglobin 28.8 pg (27-33); Mean Corpuscular Volume 85.1 fl (85-98); Nucleated Red Blood Cells % 0 %; Platelet Count 195 10^3/cmm (157-399); Red Blood Count 4.51 10^6/uL (3.85-5.65); White Blood Count 4.07 10^3/uL (3.29-11.43)
--- NOTE | 2025-02-05 10:08 | ECG_ITS ---
[facility]: 2025-02-05 Pat Name: Yudy Coates Department: Room: Gender: Female Senior Policy Advisor: : 1940 Requested By: Elly Johnson Order Number: [id number] Reading MD: CHINA APONTE Measurements Intervals [place] Rate: 77 P: 0 SC: 0 QRS: -64 QRSD: 154 T: 25 QT: 433 QTc: 492 Interpretive Statements SINUS ARRHYTHMIA RIGHT BUNDLE BRANCH BLOCK [120+ ms QRS DURATION, UPRIGHT V1, 40+ ms S IN I/aVL/V4/V5/V6] LEFT ANTERIOR FASCICULAR BLOCK [QRS AXIS <= -45, QR IN I, RS IN II] MODERATE VOLTAGE CRITERIA FOR LVH, CONSIDER NORMAL VARIANT [MEETS CRITERIA IN ONE OF: R(aVL), S(V1), R(V5), R(V5/V6)+S(V1)] No previous ECG available for comparison Electronically Signed On 02-07-2025 23:06:31 SAFETY RISK LEAD by CHINA APONTE [email or web address]
[2025-02-05 10:21] LABS: Alanine Aminotransferase 8 U/L (0-33); Albumin Level 3.8 g/dL (3.5-5.2); Alkaline Phosphatase 75 U/L (35-105); Anion Gap 15.4 (5-19); Aspartate Amino Transferase 42 U/L (0-32); Blood Urea Nitrogen 16 mg/dL (8-23); Calcium 8.9 mg/dL (8.5-10.5); Carbon Dioxide 26 mmol/L (22-29); Chloride 101 mmol/L (98-107); Globulin 2.9 g/dL (1.3-4.6); Glucose 230 mg/dL (65-115); Osmolality Calculated 296 mOsm/kg (285-295); Potassium 3.4 mmol/L (3.5-5.1); Sodium 139 mmol/L (136-145); Total Protein 6.7 g/dL (6.6-8.7)
--- NOTE | 2025-02-05 11:00 | PC.NURSE ---
pt was able to successfully swallow water and applesauce.
--- NOTE | 2025-02-05 11:33 | PC.NURSE ---
pt was triaged upon arrival to the ED by this RN, she charted on the wrong person and responded to a code blue which caused a delay in triage documentation.
[2025-02-05 11:35] VITALS: BP 166/85; PULSE 65; O2SAT 93
== END 2025-02-05 11:37 | disposition home or self-care (01) ==
PROVIDERS: Emergency Provider Emergency Medicine; PCP Internal Medicine
DX: R13.10 Dysphagia, unspecified (principal); F03.90 Unspecified dementia, unspecified severity, without behavioral disturbance, psychotic disturbance, mood disturbance, and anxiety; Z79.4 Long term (current) use of insulin
CPT/HCPCS: 36415; 70450; 71045; 80053; 85025; 93005; 99285